=== PATIENT | female | born 1950 | race Caucasian/White ===

== ENCOUNTER 2017-03-04 10:34 | Inpatient (IN) ==
[2017-03-04] MEDS ORDERED: SALINE FLUSH 10ml SYRINGE IVF PRN (10:45)
--- NOTE | 2017-03-04 11:13 | Emergency Department Report ---
General Adult HPI - General Chief complaint: Medical Emergency Stated complaint: psych symptoms Time Seen by Provider: 03/04/17 10:41 Source: EMS, old records reviewed Mode of arrival: EMS Limitations: altered mental status - History of Present Illness HPI narrative: Jane is a 66-year-old female who [facility] was brought into the emergency Department today by EMS for reports of refusal to take blood pressure medications, change in behavior and agitation. Patient has a history of major neurocognitive disorder and resides in a care facility due to this. Apparently, patient has been refusing to take her medications today. Staff at the facility states blood pressure was recorded to be very elevated (160/115) and patient was refusing to take her meds. When paramedics arrived, blood pressure was improved around 130s over 80s. She was tachycardic at that time with heart rate of 112. Patient has no specific complaints, specifically she denies chest pain headache or shortness of air. Patient is a very poor historian due to her dementia. When asked where she was at, patient states "here". Patient does not know why she is here. She does appear anxious and slightly tremulous. Staff reports that patient has been not eating well however has been taking fluids. Patient presents to the emergency department for possible psychiatric evaluation. MD complaint: behavior issues, refusal to take meds Associated symptoms: confusion (baseline dementia, neurocognitive deficit) Treatments prior to arrival: none - Related Data Home Medications Medication Instructions Recorded Confirmed Cholecalciferol (Vitamin D3) 2,000 unit PO DAILY 01/29/17 03/04/17 [Vitamin D3] Mirtazapine Solu-Tab [Remeron 15 mg PO HS 01/29/17 03/04/17 Solu-Tab] Triamcinolone 0.1% Cream 15 G 1 applicatio TOP BID PRN 01/29/17 03/04/17 [Kenalog] Gabapentin [Neurontin] 100 mg PO TID 03/04/17 03/04/17 Previous Rx's Medication Instructions Recorded Acetaminophen [Acetaminophen Extra 500 mg PO Q6H PRN 30 Days #90 03/14/17 Strength] Aspirin [Adult Low Dose Aspirin EC] 81 mg PO DAILY 30 Days #30 03/14/17 Benzocaine 20% Oral Gel [Orajel] 1 applicatio MM PRN PRN 30 Days #30 03/14/17 Bimatoprost [Lumigan] 1 drop EACH EYE HS 30 Days #60 03/14/17 Divalproex Sprinkle [Depakote 250 mg PO 18 cap 03/14/17 Sprinkle] Donepezil HCl [Aricept] 5 mg PO HS 60 Days #30 03/14/17 EPINEPHrine [Epipen 2-Tyron] 0.3 mg IJ PRN PRN 30 Days #30 03/14/17 HydroCHLOROthiazide [Microzide] 12.5 mg PO BIDWM cap 03/14/17 LORazepam [Ativan] 0.5 mg PO Q6H PRN 30 Days #90 tab 03/14/17 Levothyroxine Sodium [Synthroid] 150 mcg PO ACB tab 03/14/17 Losartan [Cozaar] 50 mg PO DAILY 30 Days #30 03/14/17 Metoprolol Succinate (XL) [Toprol 25 mg PO BIDWM tab 03/14/17 Xl] Milk of Magnesia [Mom] 30 ml PO DAILY PRN udc 03/14/17 Potassium Chloride Oral Liq [KCl 30 meq PO BIDWM udc 03/14/17 Oral Liq] RisperiDONE [RisperDAL] 1 mg PO DAILY tab 03/14/17 RisperiDONE [RisperDAL] 2 mg PO 18 tab 03/14/17 Allergies Allergy/AdvReac Type Severity Reaction Status Date / Time No Known Allergies Allergy Verified 03/04/17 10:59 Review of Systems Limitations: ROS unobtainable due to patient's medical condition (patient with severe neurocognitive disorder) Constitutional: Reports: chills PFSH Patient Stated Medical History Alzheimer's Disease Yes Coronary Artery Disease Yes Hypertension Yes Osteoarthritis Yes - Social History Smoking status: Former smoker [place] Physical Exam - Limitations Limitations: altered mental status - General General appearance: alert, anxious - Normal Exams: Head:: Normocephalic without trauma Eyes:: Pupils are PERRLA w/ EOMI, No scleral icterus, irritation, or foreign bodies noted ENMT:: No facial trauma, nasal exudates, pharyngeal erythema, or exudates are noted Dental: No fractured, loose, or missing teeth noted Neck:: Full range of motion, without adenopathy, JVD, bruits or thyromegaly Chest/Respirations:: Clear all cain, with good airflow, and symmetry bilaterally Cardiovascular:: Regular rate and rhythm, without murmur or gallop, Pulses 2+ all extremities, capillary refill, <2 seconds all extremities Abdomen:: Bowel sounds positive, soft, non-tender, non-distended, no hepatosplenomegaly, masses or bruits noted Genitourinary:: Vulva without rashes, or lesions, no exudate or bleeding, noted externally Lymphatic:: No lymphadenopathy, or lymphedema noted Musculoskeletal:: No tenderness, or deformity noted, good range of motion, all extremities Integumentary:: No rashes, hives, or bruising noted, hair and nails, without abnormality - Neurological Exam Neurological exam: Present: alert - Expanded Neurological Exam Patient oriented to: Present: person Course Vital Signs Temperature 97.1 F 03/04/17 10:39 Pulse Rate 76 03/04/17 10:39 Respiratory Rate 16 03/04/17 10:39 Blood Pressure 150/67 H 03/04/17 10:39 Pulse Oximetry 97 03/04/17 10:39 Temperature 97.7 F 03/14/17 08:00 Pulse Rate 87 03/14/17 08:00 Respiratory Rate 18 03/14/17 08:00 Blood Pressure 128/72 03/14/17 08:00 Pulse Oximetry 99 03/14/17 08:00 Medical Decision Making - Lab Data Result diagrams: 03/09/17 08:02 03/14/17 06:36 Lab Results 03/04/17 03/04/17 03/04/17 Range/Units 11:07 11:07 14:10 WBC 5.3 (4.5-11.0) T/MM3 RBC 4.78 (4.00-5.20) M/MM3 Hgb 13.5 (12-16) GM/DL Hct 41.6 (36-46) % MCV 87.0 (80-100) UM3 MCH 28.2 (26-34) UUG MCHC 32.5 (31-37) GM/DL RDW Std Deviation 43.5 (36.9-50.2) FL Plt Count 204 (130-400) T/MM3 MPV 13.7 H (9.4-12.4) UM3 Immature Gran % (Auto) 0.0 (0.0-0.5) % Neut % (Auto) 49.9 (33-66) % Lymph % (Auto) 39.0 (23-45) % [place] % (Auto) 8.2 (0-9.0) % Eos % (Auto) 1.9 (0-4) % Baso % (Auto) 1.0 (0-2) % Neut # (Auto) 2.6 (1.8-7.7) T/MM3 Lymph # (Auto) 2.1 (1-4.8) T/MM3 [place] # (Auto) 0.4 (0-0.8) T/MM3 Eos # (Auto) 0.1 (0-0.5) T/MM3 Baso # (Auto) 0.1 (0-0.2) T/MM3 Abs Immat Gran (auto) 0.00 (0.00-0.03) T/MM3 Turbidity < 20 (0-20) Sodium 142 (134-144) MEQ/L Potassium 3.2 L (3.6-5) MEQ/L Chloride 98 (98-107) MEQ/L Carbon Dioxide 30 (22-30) MEQ/L Anion Gap 14 (5-15) MEQ/L BUN 22.0 H (7-17) MG/DL Creatinine 0.9 (0.7-1.2) MG/DL GFR Calculation 62 BUN/Creatinine Ratio 24 (6-26) RATIO Glucose 105 (65-110) MG/DL Calculated Osmolality 276 (261-280) MOSM/KG Calcium 9.7 (8.4-10.2) MG/DL Total Bilirubin 0.90 (0.20-1.30) MG/DL Icterus Index < 2 (0-7) AST 53 H (14-36) U/L ALT 78 H (9-52) U/L Alkaline Phosphatase 67 (38-126) U/L Total Protein 8.0 (6.3-8.2) G/DL Albumin 4.5 (3.5-5.0) G/DL Globulin 3.5 (2.4-3.6) G/DL Albumin/Globulin Ratio 1.3 (1.1-2.2) RATIO TSH 0.21 L (0.47-4.68) MIU/L Specimen Hemolysis < 15 (0-25) Ur Collection Type Urine, clean catch Urine Color Margaret (YELLOW) Urine Clarity Clear Urine pH 6.0 (5.0-8.0) Ur Specific [place] >=1.030 H (1.015-1.025) Urine Protein 1+ A (NEGATIVE) Urine Glucose (UA) Negative (NEGATIVE) Urine Ketones 3+ A (NEGATIVE) Urine Occult Blood Negative (NEGATIVE) Urine Nitrate Negative (NEGATIVE) Urine Bilirubin 2+ A (NEGATIVE) Urine Urobilinogen 2.0 (NORMAL) EU/DL Ur Leukocyte Esterase Negative (NEGATIVE) Urine RBC 1-3 (0-3) /HPF Urine WBC 1-3 (0-5) /HPF Ur Squamous Epith Cells 5-10 Urine Bacteria 2+ H (NEGATIVE) Urine Mucus Present Ur Culture Indicated? Cult not indicated Disposition Clinical Impression: Medical Emergency Disposition: 64 To [facility] Condition: Stable
--- OUTSIDE RECORDS SUMMARY | 2017-03-04 11:20 | External Medical Summary | Clinical Summary ---
:1950 Author Organization [facility] Address [address] [address] Phone Allergies Active Allergy Reactions Severity Noted Date Comments Amoxicillin 11/13/2010 Amoxicillin-Pot Clavulanate 11/13/2010 Cefprozil 11/13/2010 Erythromycin 11/13/2010 Sulfa Antibiotics 11/13/2010 Current Medications Prescription Sig. Disp. Refills Start Date End Date Status levothyroxine (SYNTHROID, Take 75 mcg by Active LEVOTHROID) 75 MCG tablet mouth daily. lisinopril Take 5 mg by mouth Active (PRINIVIL,ZESTRIL) 5 MG daily. tablet Active Problems Not on file Social History Tobacco Use Types Packs/Day Years Used Date Never Smoker Alcohol Use Drinks/Week oz/Week Comments Yes socially Sex Assigned at Date Recorded Not on file Last Filed Vital Signs Vital Sign Reading Time Taken Blood Pressure 173/68 11/13/2010 1:19 PM CDT Pulse 63 11/13/2010 1:19 PM CDT Temperature 36.5 C (97.7 F) 11/13/2010 1:19 PM CDT Respiratory Rate 20 11/13/2010 1:19 PM CDT Oxygen Saturation 100% 11/13/2010 1:19 PM CDT Inhaled Oxygen Concentration - - Weight 79.4 kg (175 lb) 11/13/2010 1:19 PM CDT Height - - Body Mass Index - - Plan of Treatment Health Maintenance Due Date Last Done Comments Hepatitis C Screening 1950 DTaP,Tdap,and Td Vaccines (1 - Tdap) 1968 Breast Cancer Screening-Mammogram 1999 Colon Cancer Screening 1999 Zoster Vaccine (#1) 2009 Pneumo-Adult (1 of 2 - PCV13) 2014 Influenza Vaccine (#1) 2016 Results Not on filefrom Last 3 Months
[2017-03-04] MEDS ORDERED: LORazepam 0.5 MG TABLET PO PRN (16:29)
[2017-03-04] MEDS ORDERED: HALOPERIDOL 5 MG/ML INJECTION IM PRN (16:29)
[2017-03-04] MEDS ORDERED: HALOPERIDOL 0.5 MG TABLET PO PRN (16:29)
[2017-03-04] MEDS ORDERED: TRIAMCINOLONE 0.1% CREAM 15 G TUBE TOP PRN (20:44)
[2017-03-04] MEDS ORDERED: ACETAMINOPHEN 500 MG TABLET PO PRN (20:44)
[2017-03-04] MEDS ORDERED: BENZOCAINE 20% ORAL GEL (Max Strength) MM PRN (20:44)
[2017-03-04] MEDS ORDERED: [UNRECOGNIZED DRUG - OTHER] PO SCH (21:00)
[2017-03-04] MEDS ORDERED: HYDROCHLOROTHIAZ PO SCH (21:00)
[2017-03-04] MEDS ORDERED: METOPROLOL SU PO SCH (21:00)
[2017-03-04] MEDS: DONEPEZIL 10 MG TABLET PO SCH ×2 (22:16→23:16)
[2017-03-04] MEDS: GABAPENTIN 100 MG CAPSULE PO SCH ×2 (22:16→23:16)
[2017-03-04] MEDS: MIRTAZAPINE 15 MG SOLU-TAB PO SCH ×2 (22:17→23:16)
[2017-03-04] MEDS: MEMANTINE 10 MG TABLET PO SCH ×2 (22:18→23:16)
[2017-03-04] MEDS: EYE EACH EYE SCH ×2 (22:18→23:16)
[2017-03-04] MEDS: BIMATOPROST 0.03% EACH EYE SCH ×2 (22:18→23:16)
[2017-03-05] MEDS ORDERED: LEVOTHYROXINE 175 MCG TABLET PO SCH (06:30)
[2017-03-05] MEDS: GABAPENTIN 100 MG CAPSULE PO SCH ×2 (10:12→11:15)
[2017-03-05] MEDS: MEMANTINE 10 MG TABLET PO SCH ×3 (11:16→21:27)
[2017-03-05] MEDS: LOSARTAN 50 MG TABLET PO SCH (11:16)
[2017-03-05] MEDS: ASPIRIN *EC* 81 MG TABLET PO SCH (11:17)
--- NOTE | 2017-03-05 12:26 | CT Scan Report ---
Indication: changes in behavior PROCEDURE: CT head/brain wo con: Encounter: Initial Comparison: None Technique: Axial CT images through the head were performed without contrast. Iterative Reconstruction dose reducing technique was utilized. FINDINGS: Moderate generalized atrophy, advanced for age. The ventricles are of normal size, shape, and contour for the patient's age. There are scattered areas of low attenuation in the white matter which most likely represent changes from chronic microvascular ischemia. The brainstem, cerebellum, and cerebral hemispheres otherwise have a normal morphology and CT attenuation. There is no evidence of midline displacement. No hemorrhage, signs of acute territorial stroke, mass effect, mass lesions, or edema is evident. The visualized portions of the skull base, midface, and calvarium demonstrate no abnormality. Opacified right sphenoid sinus. The tympanic and mastoid cavities appear normal. IMPRESSION: No acute intracranial abnormality or hemorrhage. There is a preliminary report by [facility]. .
--- NOTE | 2017-03-05 15:17 | 24 Hour Neuropsychiatic Eval ---
Date of Admission: 03/04/17 16:29 Chief complaint: Physical aggression History of Present Illness: Patient is a 66-year-old female who was admitted to [facility] on 03/04/17 from [facility] [[email or web address]] for refusing medications and physical aggression at the [facility] facility (towards staff and other residents), increasing over the past 1-2 weeks. Patient has an established history of dementia. On interview, patient says very little to me and does not give meaningful answers other than saying she is "okay." Nursing staff report she has continued to refuse medications since admission, slept well overnight but then has been pacing frequently this morning. She has also had some mild physical aggression such as acting that she was going to choke one of our nurses. Patient's appetite is quite poor. [facility] Medical History (Last Reviewed 12/13/16 @ 08:19 by Isaias Carrizales APRN) Contusion of face (Inactive Medical) Fall (Inactive Medical) Nasal fracture (Inactive Medical) Medical History Updates: Not able to obtain reliable history from patient due to dementia. Surgical History: Not able to obtain reliable history from patient due to dementia. Family History: Not able to obtain reliable history from patient due to dementia. - Social History Smoking status: Former smoker Current residence: [facility]mediate ([facility] [[email or web address] Social history: Not able to obtain reliable history from patient due to dementia. Strengths: Has family support (sisters), placement at [facility] [[email or web address]] Review of Systems ROS unobtainable: due to mental status - Constitutional Constitutional: Present: other (decreased appetite) - Psychiatric Psychiatric: Present: as per HPI, behavioral changes Mental Status Exam Vitals: Last Vital Signs Temp 97.6 F 03/05/17 13:41 Pulse 87 03/05/17 13:41 Resp 12 03/05/17 13:41 BP 125/77 03/05/17 13:41 Pulse Ox 99 03/05/17 13:41 Height: 1.65 m Weight: 74 kg - Mental Status Exam Muscle Strength/Tone: Weak Dressing: Casual Grooming: Fair Attitude: Uncooperative, Combative Motor Activity: Retardation, Pacing (at times) Eye Contact: Poor Speech: Slowed Volume: Soft Rhythm: Paucity of Language Orientation: Disoriented to time, Disoriented to place, Disoriented to situation , Oriented to person Mood: Irritable Affect: Blunted Rate of Thoughts: Delayed Thought Organization: [place], Confused Associations: Illogical Abstract Reasoning: Impaired, concrete Thought Content: Other (Poverty of thought) Perception/Psychotic: Perception Normal Language: Naming Impaired Fund of Knowledge: Poor fund of knowledge Memory: Poor-immediate, Poor-recent, Poor-remote Suicidal Ideation: None Homicidal Ideation: Other (Does not answer; makes action as if to choke nurse) Insight: Impaired Judgement: Impaired Impulse Control: Poor - Laboratory Result Diagrams: 03/04/17 11:07 03/04/17 11:07 Laboratory Results - last 24 hr 03/05/17 07:29 Hemoglobin A1c 5.5 Triglycerides 143 H Cholesterol 214 H LDL Cholesterol, Calc 149.4 VLDL Cholesterol 28.6 H HDL Cholesterol 36 L Cholesterol/HDL Ratio 5.9 H Assessment and Plan (1) Major neurocognitive disorder Problem details: etiology unclear at this point, moderate to severe, with behavioral disturbance Current visit: Yes Status: Acute (2) Hypertension Current visit: Yes Status: Acute Admit to [facility] for evaluation and stabilizaion; maintain safety and elopement precautions. Will review and/or order following labs: CBC, CMP, TSH, UA, Vitamin B12 and folate levels, head CT. Obtain further collateral history from family/DPOA and LTC facility. Consult hospitalist for optimization of medical comorbidities. Monitor mood, behavior and response to treatment. Discussed medication options with sister/DPOA Betty who gave informed consent to start Risperdal 0.5mg PO BID to target agitation and aggression.
--- NOTE | 2017-03-05 20:52 | History & Physical Report ---
History of Present Illness Date: 03/05/17 Chief complaint: Behavioral changes HPI: The following is from pt's ER admission: "Jane is a 66-year-old female who resides at [facility] [[email or web address] was brought into the emergency Department today by EMS for reports of refusal to take blood pressure medications, change in behavior and agitation. Patient has a history of major neurocognitive disorder and resides in a care facility due to this. Apparently, patient has been refusing to take her medications today. Staff at the facility states blood pressure was recorded to be very elevated (160/115) and patient was refusing to take her meds. When paramedics arrived, blood pressure was improved around 130s over 80s. She was tachycardic at that time with heart rate of 112. Patient has no specific complaints, specifically she denies chest pain headache or shortness of air. Patient is a very poor historian due to her dementia. When asked where she was at, patient states "here". Patient does not know why she is here. She does appear anxious and slightly tremulous. Staff reports that patient has been not eating well however has been taking fluids." Patient was seen this evening in her room [facility]. She was lying in bed and was not conversational. She was able to tell me her name. Beyond that , she did not answer any questions or offer any information. All information is gathered from her ER note and chart. Patient was diagnosed with dementia at age 61 (2011) she has a history of marijuana use many years ago. Plan is for patient to be discharged back to [facility] [[email or web address]] once her mood is stabilized and behaviors are improved so she can safely return to her facility. Review of Systems ROS unobtainable: due to mental status [facility] Patient Stated Medical History Alzheimer's Disease Yes Coronary Artery Disease Yes Hypertension Yes Osteoarthritis Yes Clinic Medical History (Last Reviewed 12/13/16 @ 08:19 by Isaias Carrizales APRN) Major neurocognitive disorder (Acute Medical) etiology unclear at this point, moderate to severe, with behavioral disturbance Hypertension (Acute Medical) Contusion of face (Inactive Medical) Fall (Inactive Medical) Nasal fracture (Inactive Medical) Medical History Updates: Not able to obtain reliable history from patient due to dementia. Surgical History: Not able to obtain reliable history from patient due to dementia. Family History: Not able to obtain reliable history from patient due to dementia. - Social History Smoking status: Unknown if ever smoked Substance use type: marijuana (in the past) Current residence: [facility] ([facility] [[email or web address] Social history: PCP-Carlene Salvador Medications Home Medications Medication Instructions Recorded Confirmed Type Acetaminophen [Acetaminophen Extra 500 mg PO Q6H PRN 01/29/17 03/04/17 History Strength] Aspirin [Adult Low Dose Aspirin EC] 81 mg PO DAILY 01/29/17 03/04/17 History Benzocaine 20% Oral Gel [Orajel] 1 applicatio MM PRN PRN 01/29/17 03/04/17 History Bimatoprost [Lumigan] 1 drop EACH EYE HS 01/29/17 03/04/17 History Cholecalciferol (Vitamin D3) 2,000 unit PO DAILY 01/29/17 03/04/17 History [Vitamin D3] Donepezil HCl [Aricept] 10 mg PO HS 01/29/17 03/04/17 History EPINEPHrine [Epipen 2-Tyron] 0.3 mg IJ PRN PRN 01/29/17 03/04/17 History Levothyroxine Tab [Synthroid] 175 mcg PO ACB 01/29/17 03/04/17 History Losartan [Cozaar] 50 mg PO DAILY 01/29/17 03/04/17 History Memantine HCl [Namenda] 10 mg PO BID 01/29/17 03/04/17 History Metoprolol Pepe/Hydrochlorothiaz 1 tab PO BID 01/29/17 03/04/17 History [Metoprolol ER-Hctz 25-12.5 mg] Mirtazapine Solu-Tab [Remeron 15 mg PO HS 01/29/17 03/04/17 History Solu-Tab] Potassium Chloride 10 meq PO DAILY 01/29/17 03/04/17 History Triamcinolone 0.1% Cream 15 G 1 applicatio TOP BID PRN 01/29/17 03/04/17 History [Kenalog] Gabapentin [Neurontin] 100 mg PO TID 03/04/17 03/04/17 History Allergies Allergy/AdvReac Type Severity Reaction Status Date / Time No Known Allergies Allergy Verified 03/04/17 10:59 Exam Vital Signs: Temperature 97.6 F 03/05/17 13:41 Pulse Rate 78 03/05/17 19:55 Respiratory Rate 16 03/05/17 19:55 Blood Pressure 125/77 03/05/17 13:41 Pulse Oximetry 99 03/05/17 19:55 Height/Weight/BMI: Height 1.65 m Weight 74 kg Body Mass Index 27.1 - Constitutional Present: no acute distress, well nourished, well developed - Routine HEENT Exam Head: Present: normocephalic, atraumatic Eye: Present: EOMI. Absent: conjunctival icterus, exophthalmos ENT: Present: external ear normal - Routine Neck Exam Present: supple. Absent: lymphadenopathy, thyromegaly - Routine Respiratory Exam Present: CTA bilaterally. Absent: wheezes - Routine Cardiovascular Exam Present: RRR. Absent: murmur - Routine Abdominal Exam Present: soft, normoactive bowel sounds, non distended. Absent: tenderness - Routine Extremities Exam Present: no edema, normal capillary refill - Routine Skin Exam Present: dry, warm - Routine Neurological Exam Present: alert (alert but drowsy. Speech is clear with the few words she speaks. ), moving all extremities - Routine Psychiatric Exam Present: cooperative, unable to assess Results - Labs CBC & Chem 7: 03/04/17 11:07 03/04/17 11:07 Assessment and Plan (1) Major neurocognitive disorder Problem details: etiology unclear at this point, moderate to severe, with behavioral disturbance Current visit: Yes Status: Acute Assessment and Plan: Assessment Major neurocognitive disorder with behavior disturbance Alzheimer's Disease Coronary Artery Disease Hypertension Osteoarthritis Hypothyroidism-(on supplementation) low TSH -POA Hypokalemia-POA Hyperlipidemia Elevated LFTs-POA Plan Agree with admission to [facility] for evaluation and treatment by psychiatrist and to provide a safe environment. Chronic medical problems appear stable. She does have hypokalemia on admission. We'll will replace potassium and repeat BMP. She is found to have a low TSH on admission. FreeT4 is pending. Decrease her levothyroxine dose from 175 g to 150 g she'll need follow-up TSH in 4-6 weeks on an outpatient basis. Her liver enzymes are mildly elevated. Will monitor closely. We will follow patient medically throughout her stay. Thank you for the consult. Patient's care to return to Dr. Salvador upon discharge. Resuscitation Status: Do Not Resuscitate - Physician Narriative Physician: Sarita Laird MD Narriative: 03/05/17 23:15 I have independently evaluated and examined this patient. I reviewed the chart, the patient's history, and the TRACK HOE OPERATOR/PA's documented findings as above. We discussed and formulated the assessment and plan as above with additions as below: Mrs. Mcbride was seen resting in her room. She was largely nonverbal staring blankly ahead. At one point she answered "Nassar"and appeared to be mimicking my question; on one other occasion she responded "no"clearly when asked if she had abdominal pain. There was no other speech throughout my assessment. Transfer records from [facility] [[email or web address]] report additional history of major depressive disorder, hyperlipidemia, glaucoma, and hypothyroidism. Vascular dementia is referenced in outpatient records. Gen. recent urinary tract infection treated with Bactrim and was started on gabapentin on February 22. The patient is curled in a semi- position on her right side. She stares straight ahead and does not follow/track to evaluate extra eye movements but gaze is conjugate and pupils are round and react to light. Facial structures are symmetric and tongue is midline. Neck is supple and without adenopathy. Respirations are nonlabored, airflow good and breath sounds clear Regular cardiac rhythm, S1-S2 Abdomen benign Picker Feeder are strong bilaterally, sensation intact bilateral feet and patient kicks when feet are stimulated-appears to have fairly symmetric power in the lower extremities although power cannot be formally evaluated. Head CT reviewed by myself demonstrating generalized atrophy advanced for age and chronic microvascular ischemia but no hemorrhage or acute pathology. ECG also reviewed by myself revealing sinus rhythm with normal waveforms. Laboratory data reviewed-minor elevation in transaminases, total cholesterol 214 with LDL 149, HDL 36, TSH 0.21; B 12, free T4 pending. Urine with 1-3 WBCs, +3 ketones-urine concentrated. Supportive environment, additional history from [facility] [[email or web address]outpatient provider will be beneficial in managing patient if available. Likely some component of dehydration based on presence of ketones and concentrated urine, oral intake will be encouraged initially. 03/05/17 23:23 Past hospital records reviewed Hospital Course Summary Disclaimer: The visit summary below is not to be considered part of the above Progress Note. Hospital Course: Assessment Major neurocognitive disorder with behavior disturbance Alzheimer's Disease Coronary Artery Disease Hypertension Osteoarthritis Hypothyroidism-(on supplementation) low TSH -POA Hypokalemia-POA Hyperlipidemia Elevated LFTs-POA 12/11/17 hospitalist consult Agree with admission to [facility] for evaluation and treatment by psychiatrist and to provide a safe environment. Chronic medical problems appear stable. She does have hypokalemia on admission. We'll replace potassium and repeat BMP. She is found to have a low TSH on admission. FreeT4 is pending. Decrease her levothyroxine dose from 175 g to 150 g she'll need follow-up TSH in 4-6 weeks on an outpatient basis. Her liver enzymes are mildly elevated. Will monitor closely. We will follow patient medically throughout her stay. Thank you for the consult. Patient's care to return to Dr. Salvador upon discharge.
[2017-03-05] MEDS: BIMATOPROST 0.03% EACH EYE SCH (21:00)
[2017-03-05] MEDS: EYE EACH EYE SCH (21:00)
[2017-03-05] MEDS: DONEPEZIL 10 MG TABLET PO SCH ×2 (21:01→21:27)
[2017-03-05] MEDS: RisperiDONE 0.5 MG TABLET PO SCH (21:02)
[2017-03-05] MEDS: MIRTAZAPINE 15 MG SOLU-TAB PO SCH (21:02)
[2017-03-06] MEDS: LEVOTHYROXINE 150 MCG TABLET PO SCH ×2 (06:45→12:24)
[2017-03-06] MEDS: ASPIRIN *EC* 81 MG TABLET PO SCH (12:34)
[2017-03-06] MEDS: LOSARTAN 50 MG TABLET PO SCH (12:34)
[2017-03-06] MEDS: RisperiDONE 0.5 MG TABLET PO SCH (12:34)
[2017-03-06] MEDS: MEMANTINE 10 MG TABLET PO SCH ×3 (12:34→21:48)
--- NOTE | 2017-03-06 13:34 | Neuropsych Progress Note ---
[facility] Subjective Date: 03/06/17 - Sujective/Severity of Illness Medications: Acetaminophen (Tylenol) 500 mg PO Q6H PRN PRN Reason: Pain Last Admin: 03/05/17 11:57 Dose: 500 mg Aspirin (Ecotrin) 81 mg PO DAILY [facility] Last Admin: 03/06/17 12:34 Dose: Not Given Benzocaine (Orajel) 1 applic MM PRN PRN PRN Reason: PRN orders Bimatoprost (Lumigan) 1 drop EACH EYE [facility] Last Admin: 03/05/17 21:00 Dose: 1 drop Donepezil HCl (Aricept) 10 mg PO HS [facility] Last Admin: 03/05/17 21:27 Dose: Not Given Epinephrine HCl (Epipen) 0.3 mg IM PRN PRN PRN Reason: Allergic reaction Haloperidol (Haldol) 0.5 mg PO Q6H PRN PRN Reason: Extreme agitation Last Admin: 03/05/17 11:57 Dose: 0.5 mg Haloperidol Lactate (Haldol) 0.5 mg IM Q6H PRN PRN Reason: Extreme agitation Hydrochlorothiazide (Microzide) 12.5 mg PO BIDWM [facility] Last Admin: 03/06/17 12:25 Dose: Not Given Levothyroxine Sodium (Synthroid) 150 mcg PO ACB [facility] Last Admin: 03/06/17 12:24 Dose: Not Given Lorazepam (Ativan) 0.5 mg PO Q6H PRN PRN Reason: Extreme agitation Last Admin: 03/05/17 16:06 Dose: 0.5 mg Lorazepam (Ativan Inj) 0.5 mg IM Q6H PRN PRN Reason: Extreme agitation Last Admin: 03/05/17 07:38 Dose: 0.5 mg Losartan Potassium (Cozaar) 50 mg PO DAILY [facility] Last Admin: 03/06/17 12:34 Dose: Not Given Memantine (Namenda) 10 mg PO BID [facility] Last Admin: 03/06/17 12:34 Dose: Not Given Metoprolol Succinate (Toprol Xl) 25 mg PO BIDWM [facility] Last Admin: 03/06/17 12:25 Dose: Not Given Mirtazapine (Remeron Solu-Tab) 15 mg PO HS [facility] Last Admin: 03/05/17 21:02 Dose: 15 mg Potassium Chloride (Micro-K) 10 meq PO WB [facility] Last Admin: 03/06/17 12:25 Dose: Not Given Risperidone (Risperdal) 1 mg PO BID [facility] Sodium Chloride (Iv Flush) 10 - 80 ml IVF PRN PRN PRN Reason: Flushing Triamcinolone Acetonide (Kenalog) 1 applic TOP BID PRN PRN Reason: PRN orders Subjective: Patient seen and chart reviewed. Case discussed with treatment team. Patient is sleeping soundly during rounds. She has had intermittent agitation, aggression requiring multiple PRNs. She did take psychotropic meds last night but has been refusing other medications. MSE below based on my last interaction with patient. Patient slept well overnight. VSS. Appetite is fair. Risperdal 0.5mg PO BID started yesterday evening. Start Time: 09:00 Stop Time: 09:20 Mental Status Exam Vitals: Last Vital Signs Temp 96.8 F 03/05/17 21:30 Pulse 66 03/05/17 21:30 Resp 16 03/05/17 21:30 BP 116/63 03/05/17 21:30 Pulse Ox 99 03/05/17 21:30 Height: 1.65 m Weight: 74 kg - Mental Status Exam Muscle Strength/Tone: Weak Dressing: Casual Grooming: Fair Attitude: Uncooperative, Combative Motor Activity: Retardation, Pacing (at times) Eye Contact: Poor Speech: Slowed Volume: Soft Rhythm: Paucity of Language Orientation: Disoriented to time, Disoriented to place, Disoriented to situation , Oriented to person Mood: Irritable (labile affect on unit) Rate of Thoughts: Delayed Thought Organization: [place], Confused Associations: Illogical Abstract Reasoning: Impaired, concrete Thought Content: Other (Poverty of thought) Perception/Psychotic: Perception Normal Language: Naming Impaired Fund of Knowledge: Poor fund of knowledge Memory: Poor-immediate, Poor-recent, Poor-remote Suicidal Ideation: None Homicidal Ideation: Other (Does not answer; makes action as if to choke nurse) Insight: Impaired Judgement: Impaired Impulse Control: Poor - Laboratory Result Diagrams: 03/04/17 11:07 03/06/17 06:56 Laboratory Results - last 24 hr 03/06/17 06:56 Turbidity < 20 Sodium 144 Potassium 4.3 D Chloride 101 Carbon Dioxide 27 Anion Gap 16 H BUN 18.0 H Creatinine 1.0 GFR Calculation 55 BUN/Creatinine Ratio 18 Glucose 106 Calculated Osmolality 279 Calcium 9.7 Total Bilirubin 0.90 Icterus Index < 2 AST 37 H ALT 49 Alkaline Phosphatase 57 Total Protein 8.1 Albumin 4.4 Globulin 3.7 H Albumin/Globulin Ratio 1.2 Specimen Hemolysis 125 H Assessment and Plan (1) Major neurocognitive disorder Problem details: etiology unclear at this point, moderate to severe, with behavioral disturbance Current visit: Yes Status: Acute (2) Hypertension Current visit: Yes Status: Acute (3) Coronary artery disease Current visit: Yes Status: Acute (4) Hyperlipidemia Current visit: Yes Status: Acute (5) Hypothyroidism Current visit: Yes Status: Acute (6) Elevated LFTs Current visit: Yes Status: Acute 03/05/17 Psych: Started Risperdal 0.5mg PO BID to target agitation and behavioral dyscontrol. Patient is also taking mirtazapine 15mg PO q HS. 03/06/17 Psych: Patient continues to be quite agitated, requiring multiple PRNs. Will increase Risperdal to 1mg PO BID to start this evening; monitor response. Hospital Course Summary Disclaimer: The visit summary below is not to be considered part of the above Progress Note. Hospital Course: Assessment Major neurocognitive disorder with behavior disturbance Alzheimer's Disease Coronary Artery Disease Hypertension Osteoarthritis Hypothyroidism-(on supplementation) low TSH -POA Hypokalemia-POA Hyperlipidemia Elevated LFTs-POA 03/05/17 hospitalist consult Agree with admission to [facility] for evaluation and treatment by psychiatrist and to provide a safe environment. Chronic medical problems appear stable. She does have hypokalemia on admission. We'll replace potassium and repeat BMP. She is found to have a low TSH on admission. FreeT4 is pending. Decrease her levothyroxine dose from 175 g to 150 g she'll need follow-up TSH in 4-6 weeks on an outpatient basis. Her liver enzymes are mildly elevated. Will monitor closely. We will follow patient medically throughout her stay. Thank you for the consult. Patient's care to return to Dr. Salvador upon discharge.
[2017-03-06] MEDS: MIRTAZAPINE 15 MG SOLU-TAB PO SCH ×2 (17:36→21:39)
[2017-03-06] MEDS: RisperiDONE 1 MG TABLET PO SCH ×2 (17:37→21:39)
[2017-03-06] MEDS: DONEPEZIL 10 MG TABLET PO SCH ×2 (21:38→21:47)
[2017-03-06] MEDS: EYE EACH EYE SCH ×2 (21:38→21:48)
[2017-03-06] MEDS: BIMATOPROST 0.03% EACH EYE SCH ×2 (21:38→21:48)
[2017-03-07] MEDS: ASPIRIN *EC* 81 MG TABLET PO SCH (13:36)
[2017-03-07] MEDS: MEMANTINE 10 MG TABLET PO SCH ×2 (13:36→22:32)
[2017-03-07] MEDS: LEVOTHYROXINE 150 MCG TABLET PO SCH (13:36)
[2017-03-07] MEDS: RisperiDONE 1 MG TABLET PO SCH (13:36)
[2017-03-07] MEDS: LOSARTAN 50 MG TABLET PO SCH (13:37)
--- NOTE | 2017-03-07 16:18 | Neuropsych Progress Note ---
[facility] Subjective Date: 03/08/17 - Sujective/Severity of Illness Medications: Acetaminophen (Tylenol) 500 mg PO Q6H PRN PRN Reason: Pain Last Admin: 03/05/17 11:57 Dose: 500 mg Aspirin (Ecotrin) 81 mg PO DAILY [facility] Last Admin: 03/07/17 13:36 Dose: 81 mg Benzocaine (Orajel) 1 applic MM PRN PRN PRN Reason: PRN orders Bimatoprost (Lumigan) 1 drop EACH EYE [facility] Last Admin: 03/06/17 21:48 Dose: Not Given Donepezil HCl (Aricept) 10 mg PO HS [facility] Last Admin: 03/06/17 21:47 Dose: Not Given Epinephrine HCl (Epipen) 0.3 mg IM PRN PRN PRN Reason: Allergic reaction Haloperidol (Haldol) 0.5 mg PO Q6H PRN PRN Reason: Extreme agitation Last Admin: 03/05/17 11:57 Dose: 0.5 mg Haloperidol Lactate (Haldol) 0.5 mg IM Q6H PRN PRN Reason: Extreme agitation Hydrochlorothiazide (Microzide) 12.5 mg PO BIDWM [facility] Last Admin: 03/07/17 13:36 Dose: 12.5 mg Levothyroxine Sodium (Synthroid) 150 mcg PO ACB [facility] Last Admin: 03/07/17 13:36 Dose: 150 mcg Lorazepam (Ativan) 0.5 mg PO Q6H PRN PRN Reason: Extreme agitation Last Admin: 03/05/17 16:06 Dose: 0.5 mg Lorazepam (Ativan Inj) 0.5 mg IM Q6H PRN PRN Reason: Extreme agitation Last Admin: 03/05/17 07:38 Dose: 0.5 mg Losartan Potassium (Cozaar) 50 mg PO DAILY [facility] [place] Last Admin: 03/07/17 13:37 Dose: 50 mg Memantine (Namenda) 10 mg PO BID [facility] Last Admin: 03/07/17 13:36 Dose: 10 mg Metoprolol Succinate (Toprol Xl) 25 mg PO BIDWM [facility] Last Admin: 03/07/17 13:37 Dose: 25 mg Mirtazapine (Remeron Solu-Tab) 15 mg PO [facility] Last Admin: 03/06/17 21:39 Dose: Not Given Potassium Chloride (Micro-K) 10 meq PO WB [facility] Last Admin: 03/07/17 13:36 Dose: 10 meq Risperidone (Risperdal) 1 mg PO BID [facility] Last Admin: 03/07/17 13:36 Dose: 1 mg Sodium Chloride (Iv Flush) 10 - 80 ml IVF PRN PRN PRN Reason: Flushing Triamcinolone Acetonide (Kenalog) 1 applic TOP BID PRN PRN Reason: PRN orders Subjective: Patient seen and chart reviewed. Case discussed with treatment team. Patient is lying in bed awake during rounds but refuses to respond to my questions. Nursing staff report patient refused HS meds last night, has been mildly aggressive during daytime (pinched SHIP LINER), but very physically aggressive with cares even after premedicating with Ativan. Patient slept 11 hours overnight. VSS. Appetite is limited. Start Time: 09:20 Stop Time: 09:40 Mental Status Exam Vitals: Last Vital Signs Temp 98.2 F 03/07/17 15:55 Pulse 76 03/07/17 15:55 Resp 18 03/07/17 15:55 BP 128/63 03/07/17 15:55 Pulse Ox 99 03/07/17 15:55 Height: 1.65 m Weight: 74 kg - Mental Status Exam Muscle Strength/Tone: Weak Dressing: Casual Grooming: Fair Attitude: Uncooperative, Combative Motor Activity: Retardation, Pacing (at times) Eye Contact: Poor Speech: Slowed Volume: Soft Rhythm: Paucity of Language Orientation: Disoriented to time, Disoriented to place, Disoriented to situation , Oriented to person Mood: Irritable (labile affect on unit) Affect: Blunted Rate of Thoughts: Delayed Thought Organization: [place], Confused Associations: Illogical Abstract Reasoning: Impaired, concrete Thought Content: Other (Poverty of thought) Perception/Psychotic: Perception Normal Language: Naming Impaired Fund of Knowledge: Poor fund of knowledge Memory: Poor-immediate, Poor-recent, Poor-remote Suicidal Ideation: None Homicidal Ideation: Other (Does not answer; makes action as if to choke nurse) Insight: Impaired Judgement: Impaired Impulse Control: Poor - Laboratory Result Diagrams: 03/04/17 11:07 03/06/17 06:56 Laboratory Results - last 24 hr 03/05/17 03/05/17 07:28 07:29 Vitamin B12 639 Folate 5.8 Free T4 1.28 Assessment and Plan (1) Major neurocognitive disorder Problem details: etiology unclear at this point, moderate to severe, with behavioral disturbance Current visit: Yes Status: Acute (2) Hypertension Current visit: Yes Status: Acute (3) Coronary artery disease Current visit: Yes Status: Acute (4) Hyperlipidemia Current visit: Yes Status: Acute (5) Hypothyroidism Current visit: Yes Status: Acute (6) Elevated LFTs Current visit: Yes Status: Acute Hospital Course Summary Disclaimer: The visit summary below is not to be considered part of the above Progress Note. Hospital Course: Assessment Major neurocognitive disorder with behavior disturbance Alzheimer's Disease Coronary Artery Disease Hypertension Osteoarthritis Hypothyroidism-(on supplementation) low TSH -POA Hypokalemia-POA Hyperlipidemia Elevated LFTs-POA 03/05/17 hospitalist consult Agree with admission to [facility] for evaluation and treatment by psychiatrist and to provide a safe environment. Chronic medical problems appear stable. She does have hypokalemia on admission. We'll replace potassium and repeat BMP. She is found to have a low TSH on admission. FreeT4 is pending. Decrease her levothyroxine dose from 175 g to 150 g she'll need follow-up TSH in 4-6 weeks on an outpatient basis. Her liver enzymes are mildly elevated. Will monitor closely. We will follow patient medically throughout her stay. Thank you for the consult. Patient's care to return to Dr. Salvador upon discharge. 03/07/17 Psych: Increased Risperdal to 1mg PO q AM, 2mg PO daily at dinnertime as patient continues to be quite combative/aggressive. If this does not help, will consider whether Risperdal is effective or trial of Depakote should be initiated.
[2017-03-07] MEDS: RisperiDONE 2 MG TABLET PO SCH (17:15)
[2017-03-07] MEDS: MIRTAZAPINE 15 MG SOLU-TAB PO SCH (22:31)
[2017-03-07] MEDS: BIMATOPROST 0.03% EACH EYE SCH (22:31)
[2017-03-07] MEDS: EYE EACH EYE SCH (22:31)
[2017-03-07] MEDS: DONEPEZIL 10 MG TABLET PO SCH (22:32)
--- NOTE | 2017-03-08 11:05 | Progress Note ---
<Arabella Saxena - Last Filed: 03/08/17 11:02> - Date 03/08/17 Subjective: Patient is seen today lying in her bed. She is awake but just blankly stares. She does not respond to any questions. She does allow me to examine her. After I walk away, she closes her eyes. Objective Vital signs: Temperature 98.0 F 03/08/17 08:00 Pulse Rate 64 03/08/17 08:00 Respiratory Rate 18 03/07/17 15:55 Blood Pressure 120/65 03/08/17 08:00 Pulse Oximetry 99 03/08/17 08:00 Height/Weight/BMI: Height 1.65 m Weight 74 kg Body Mass Index 27.1 - Constitutional Present: no acute distress, disheveled - Routine Respiratory Exam Present: CTA bilaterally. Absent: wheezes - Routine Cardiovascular Exam Present: RRR. Absent: murmur - Routine Abdominal Exam Present: soft, normoactive bowel sounds, non distended. Absent: tenderness - Routine Extremities Exam Present: no edema, normal capillary refill - Routine Skin Exam Present: dry, warm - Routine Neurological Exam Blankly stares. No response with talking to, or examining, pt. - Routine Lymphatic Exam Lymphatic: Absent: adenopathy - Routine Psychiatric Exam Present: unable to assess Results - Labs CBC & Chem 7: 03/04/17 11:07 03/06/17 06:56 Assessment and Plan (1) Major neurocognitive disorder Problem details: etiology unclear at this point, moderate to severe, with behavioral disturbance Current visit: Yes Status: Acute Assessment and Plan: Assessment Major neurocognitive disorder with behavior disturbance Alzheimer's Disease Coronary Artery Disease Hypertension Osteoarthritis Hypothyroidism-(on supplementation) low TSH -POA Hypokalemia-POA -resolved Hyperlipidemia Elevated LFTs-POA Plan Labs reviewed. Her liver enzymes are coming down. Will order further labs for tomorrow as she's not been drinking or eating much at all. Vitals are stable. Chart reviewed. She has been quite agitated and has needed frequent PRN's for her behaviors. Hospital Course Summary Disclaimer: The visit summary below is not to be considered part of the above Progress Note. Hospital Course: Assessment Major neurocognitive disorder with behavior disturbance Alzheimer's Disease Coronary Artery Disease Hypertension Osteoarthritis Hypothyroidism-(on supplementation) low TSH -POA Hypokalemia-POA Hyperlipidemia Elevated LFTs-POA 12/11/17 hospitalist consult Agree with admission to [facility] for evaluation and treatment by psychiatrist and to provide a safe environment. Chronic medical problems appear stable. She does have hypokalemia on admission. We'll replace potassium and repeat BMP. She is found to have a low TSH on admission. FreeT4 is pending. Decrease her levothyroxine dose from 175 g to 150 g she'll need follow-up TSH in 4-6 weeks on an outpatient basis. Her liver enzymes are mildly elevated. Will monitor closely. We will follow patient medically throughout her stay. Thank you for the consult. Patient's care to return to Dr. Salvador upon discharge. 03/08/17 Labs reviewed. Her liver enzymes are coming down. Will order further labs for tomorrow as she's not been drinking or eating much at all. Vitals are stable. Chart reviewed. She has been quite agitated and has needed frequent PRN's for her behaviors. <Sarita Laird L - Last Filed: 03/08/17 17:17> - Date 03/08/17 Objective Vital signs: Results - Labs CBC & Chem 7: 03/04/17 11:07 03/06/17 06:56 Assessment and Plan (1) Major neurocognitive disorder Problem details: etiology unclear at this point, moderate to severe, with behavioral disturbance Current visit: Yes Status: Acute Assessment and Plan: I have independently evaluated and examined this patient. I reviewed the chart, the patient's history, and the PITCH FILLER/PA's documented findings as above. We discussed and formulated the assessment and plan as above with additions as below: Mayuri was seen pacing the hallways in her pajamas and with an austrian wrapped around her shoulders. She did not respond to questions although lunged for me at 1 point. She grabbed the nurse accompanying her by the wrist and twisted her arm. Patient was ambulating stably and nursing reports improved oral intake compared to admission. Respirations are nonlabored but direct auscultation was not attempted. Vital signs unremarkable. LDL moderately elevated at 149. B-12 within normal range as was folic acid. Liver enzymes improved when reassessed 2 days ago. Hospital Course Summary Disclaimer: The visit summary below is not to be considered part of the above Progress Note.
[2017-03-08] MEDS: LEVOTHYROXINE 150 MCG TABLET PO SCH (11:55)
[2017-03-08] MEDS: ASPIRIN *EC* 81 MG TABLET PO SCH (11:56)
[2017-03-08] MEDS: MEMANTINE 10 MG TABLET PO SCH ×2 (11:56→20:02)
[2017-03-08] MEDS: LOSARTAN 50 MG TABLET PO SCH (11:56)
[2017-03-08] MEDS: RisperiDONE 1 MG TABLET PO SCH (11:56)
[2017-03-08] MEDS: RisperiDONE 2 MG TABLET PO SCH (17:12)
[2017-03-08] MEDS: DIVALPROEX SPRINKLE 125 MG CAPSULE PO SCH (17:12)
[2017-03-08] MEDS: BIMATOPROST 0.03% EACH EYE SCH (20:01)
[2017-03-08] MEDS: EYE EACH EYE SCH (20:01)
[2017-03-08] MEDS: MIRTAZAPINE 15 MG SOLU-TAB PO SCH (20:02)
[2017-03-08] MEDS: DONEPEZIL 10 MG TABLET PO SCH (20:02)
--- NOTE | 2017-03-08 21:50 | Neuropsych Progress Note ---
[facility] Subjective Date: 03/08/17 - Sujective/Severity of Illness Medications: Acetaminophen (Tylenol) 500 mg PO Q6H PRN PRN Reason: Pain Last Admin: 03/05/17 11:57 Dose: 500 mg Aspirin (Ecotrin) 81 mg PO DAILY [facility] Last Admin: 03/08/17 11:56 Dose: Not Given Benzocaine (Orajel) 1 applic MM PRN PRN PRN Reason: PRN orders Bimatoprost (Lumigan) 1 drop EACH EYE HS [facility] Last Admin: 03/08/17 20:01 Dose: 1 drop Divalproex Sodium (Depakote Sprinkle) 250 mg PO 18 [facility] Last Admin: 03/08/17 17:12 Dose: 250 mg Donepezil HCl (Aricept) 10 mg PO HS [facility] Last Admin: 03/08/17 20:02 Dose: 10 mg Epinephrine HCl (Epipen) 0.3 mg IM PRN PRN PRN Reason: Allergic reaction Haloperidol (Haldol) 0.5 mg PO Q6H PRN PRN Reason: Extreme agitation Last Admin: 03/05/17 11:57 Dose: 0.5 mg Haloperidol Lactate (Haldol) 0.5 mg IM Q6H PRN PRN Reason: Extreme agitation Last Admin: 03/07/17 20:30 Dose: 0.5 mg Hydrochlorothiazide (Microzide) 12.5 mg PO BIDWM [facility] Last Admin: 03/08/17 17:12 Dose: 12.5 mg Levothyroxine Sodium (Synthroid) 150 mcg PO ACB [facility] Last Admin: 03/08/17 11:55 Dose: Not Given Lorazepam (Ativan) 0.5 mg PO Q6H PRN PRN Reason: Extreme agitation Last Admin: 03/05/17 16:06 Dose: 0.5 mg Lorazepam (Ativan Inj) 0.5 mg IM Q6H PRN PRN Reason: Extreme agitation Last Admin: 03/07/17 20:30 Dose: 0.5 mg Losartan Potassium (Cozaar) 50 mg PO DAILY [facility] Last Admin: 03/08/17 11:56 Dose: Not Given Memantine (Namenda) 10 mg PO BID [facility] Last Admin: 03/08/17 20:02 Dose: 10 mg Metoprolol Succinate (Toprol Xl) 25 mg PO BIDWM [facility] Last Admin: 03/08/17 17:12 Dose: 25 mg Mirtazapine (Remeron Solu-Tab) 15 mg PO HS [facility] Last Admin: 03/08/17 20:02 Dose: 15 mg Potassium Chloride (Micro-K) 10 meq PO WB [facility] Last Admin: 03/08/17 11:55 Dose: Not Given Risperidone (Risperdal) 1 mg PO DAILY [facility] Last Admin: 03/08/17 11:56 Dose: Not Given Risperidone (Risperdal) 2 mg PO 18 [facility] Last Admin: 03/08/17 17:12 Dose: 2 mg Sodium Chloride (Iv Flush) 10 - 80 ml IVF PRN PRN PRN Reason: Flushing Triamcinolone Acetonide (Kenalog) 1 applic TOP BID PRN PRN Reason: PRN orders Subjective: Patient seen and chart reviewed. Case discussed with treatment team. Patient is sleeping during rounds but sister is as bedside. I also discussed symptoms, treatment plan with sister and we agreed to a trial of Depakote. Nursing staff report patient continues to be aggressive, intrusive, and eat very little. She was given PRNs on multiple occasions yesterday. Patient slept well overnight. VSS. Start Time: 10:20 Stop Time: 10:40 Mental Status Exam Vitals: Last Vital Signs Temp 97.5 F 03/08/17 21:36 Pulse 65 03/08/17 21:36 Resp 16 03/08/17 21:36 BP 136/68 03/08/17 21:36 Pulse Ox 100 03/08/17 16:00 Height: 1.65 m Weight: 74 kg - Mental Status Exam Muscle Strength/Tone: Weak Dressing: Casual Grooming: Fair Attitude: Uncooperative, Combative Motor Activity: Retardation, Pacing (at times) Eye Contact: Poor Speech: Slowed Volume: Soft Rhythm: Paucity of Language Orientation: Disoriented to time, Disoriented to place, Disoriented to situation , Oriented to person Mood: Irritable (labile affect on unit) Affect: Hostile Rate of Thoughts: Delayed Thought Organization: [place], Confused Associations: Illogical Abstract Reasoning: Impaired, concrete Thought Content: Other (Poverty of thought) Perception/Psychotic: Perception Normal Language: Naming Impaired Fund of Knowledge: Poor fund of knowledge Memory: Poor-immediate, Poor-recent, Poor-remote Suicidal Ideation: None Homicidal Ideation: Other (Does not answer; makes action as if to choke nurse) Insight: Impaired Judgement: Impaired Impulse Control: Poor - Laboratory Result Diagrams: 03/04/17 11:07 03/06/17 06:56 Assessment and Plan (1) Major neurocognitive disorder Problem details: etiology unclear at this point, moderate to severe, with behavioral disturbance Current visit: Yes Status: Acute (2) Hypertension Current visit: Yes Status: Acute (3) Coronary artery disease Current visit: Yes Status: Acute (4) Hyperlipidemia Current visit: Yes Status: Acute (5) Hypothyroidism Current visit: Yes Status: Acute (6) Elevated LFTs Current visit: Yes Status: Acute Hospital Course Summary Disclaimer: The visit summary below is not to be considered part of the above Progress Note. Hospital Course: Assessment Major neurocognitive disorder with behavior disturbance Alzheimer's Disease Coronary Artery Disease Hypertension Osteoarthritis Hypothyroidism-(on supplementation) low TSH -POA Hypokalemia-POA Hyperlipidemia Elevated LFTs-POA 03/05/17 hospitalist consult Agree with admission to [facility] for evaluation and treatment by psychiatrist and to provide a safe environment. Chronic medical problems appear stable. She does have hypokalemia on admission. We'll replace potassium and repeat BMP. She is found to have a low TSH on admission. FreeT4 is pending. Decrease her levothyroxine dose from 175 g to 150 g she'll need follow-up TSH in 4-6 weeks on an outpatient basis. Her liver enzymes are mildly elevated. Will monitor closely. We will follow patient medically throughout her stay. Thank you for the consult. Patient's care to return to Dr. Salvador upon discharge. 03/07/17 Psych: Increased Risperdal to 1mg PO q AM, 2mg PO daily at dinnertime as patient continues to be quite combative/aggressive. If this does not help, will consider whether Risperdal is effective or trial of Depakote should be initiated. 03/08/17 Psych: Will start trial of Depakote sprinkles 250mg PO daily at dinnertime; will likely decrease Risperdal back to 1mg PO BID tomorrow if Depakote seems to be more effective.
--- NOTE | 2017-03-09 08:40 | Neuropsych Progress Note ---
[facility] Subjective Date: 03/09/17 - Sujective/Severity of Illness Medications: Acetaminophen (Tylenol) 500 mg PO Q6H PRN PRN Reason: Pain Last Admin: 03/05/17 11:57 Dose: 500 mg Aspirin (Ecotrin) 81 mg PO DAILY [facility] Last Admin: 03/08/17 11:56 Dose: Not Given Benzocaine (Orajel) 1 applic MM PRN PRN PRN Reason: PRN orders Bimatoprost (Lumigan) 1 drop EACH EYE HS [facility] Last Admin: 03/08/17 20:01 Dose: 1 drop Divalproex Sodium (Depakote Sprinkle) 250 mg PO 18 [facility] Last Admin: 03/08/17 17:12 Dose: 250 mg Donepezil HCl (Aricept) 10 mg PO HS [facility] Last Admin: 03/08/17 20:02 Dose: 10 mg Epinephrine HCl (Epipen) 0.3 mg IM PRN PRN PRN Reason: Allergic reaction Haloperidol (Haldol) 0.5 mg PO Q6H PRN PRN Reason: Extreme agitation Last Admin: 03/05/17 11:57 Dose: 0.5 mg Haloperidol Lactate (Haldol) 0.5 mg IM Q6H PRN PRN Reason: Extreme agitation Last Admin: 03/07/17 20:30 Dose: 0.5 mg Hydrochlorothiazide (Microzide) 12.5 mg PO BIDWM [facility] Last Admin: 03/08/17 17:12 Dose: 12.5 mg Levothyroxine Sodium (Synthroid) 150 mcg PO ACB [facility] Last Admin: 03/08/17 11:55 Dose: Not Given Lorazepam (Ativan) 0.5 mg PO Q6H PRN PRN Reason: Extreme agitation Last Admin: 03/05/17 16:06 Dose: 0.5 mg Lorazepam (Ativan Inj) 0.5 mg IM Q6H PRN PRN Reason: Extreme agitation Last Admin: 03/07/17 20:30 Dose: 0.5 mg Losartan Potassium (Cozaar) 50 mg PO DAILY [facility] Last Admin: 03/08/17 11:56 Dose: Not Given Memantine (Namenda) 10 mg PO BID [facility] Last Admin: 03/08/17 20:02 Dose: 10 mg Metoprolol Succinate (Toprol Xl) 25 mg PO BIDWM [facility] Last Admin: 03/08/17 17:12 Dose: 25 mg Mirtazapine (Remeron Solu-Tab) 15 mg PO HS [facility] Last Admin: 03/08/17 20:02 Dose: 15 mg Potassium Chloride (Micro-K) 10 meq PO WB [facility] Last Admin: 03/08/17 11:55 Dose: Not Given Risperidone (Risperdal) 1 mg PO DAILY [facility] Last Admin: 03/08/17 11:56 Dose: Not Given Risperidone (Risperdal) 2 mg PO 18 [facility] Last Admin: 03/08/17 17:12 Dose: 2 mg Sodium Chloride (Iv Flush) 10 - 80 ml IVF PRN PRN PRN Reason: Flushing Triamcinolone Acetonide (Kenalog) 1 applic TOP BID PRN PRN Reason: PRN orders Subjective: Patient seen and chart reviewed. Case discussed with treatment team. Patient is sleeping during rounds. MSE below based in part on my last interaction with her. Nursing staff report patient continues to be mildly aggressive but improved from previous. Continuing to try various staff interventions to help in addition to pharmacological methods. She was more cooperative with HS cares last night and no PRNs were required. Patient slept well overnight. VSS. Appetite continues to be limited. Start Time: 07:00 Stop Time: 07:20 Mental Status Exam Vitals: Last Vital Signs Temp 97.5 F 03/08/17 21:36 Pulse 65 03/08/17 21:36 Resp 16 03/08/17 21:36 BP 136/68 03/08/17 21:36 Pulse Ox 100 03/08/17 16:00 Height: 1.65 m Weight: 74 kg - Mental Status Exam Muscle Strength/Tone: Weak Dressing: Casual Grooming: Fair Attitude: Other (becoming more cooperative, still intermittent agitation but milder) Motor Activity: Retardation Eye Contact: Poor Speech: Slowed Volume: Soft Rhythm: Paucity of Language Orientation: Disoriented to time, Disoriented to place, Disoriented to situation , Oriented to person Mood: Irritable, Other (lability decreasing) Affect: Blunted Rate of Thoughts: Delayed Thought Organization: [place], Confused Associations: Illogical Abstract Reasoning: Impaired, concrete Thought Content: Other (Poverty of thought) Perception/Psychotic: Perception Normal Language: Naming Impaired Fund of Knowledge: Poor fund of knowledge Memory: Poor-immediate, Poor-recent, Poor-remote Suicidal Ideation: None Homicidal Ideation: None Insight: Impaired Judgement: Impaired Impulse Control: Other (Limited though improved from admission) - Laboratory Result Diagrams: 03/09/17 08:02 03/09/17 08:02 Laboratory Results - last 24 hr 03/09/17 03/09/17 08:02 08:02 WBC 5.0 RBC 4.80 Hgb 13.5 Hct 42.2 MCV 87.9 MCH 28.1 MCHC 32.0 RDW Std Deviation 46.2 Plt Count 188 MPV 13.2 H Immature Gran % (Auto) 0.2 Neut % (Auto) 33.5 Lymph % (Auto) 52.8 H [place] % (Auto) 8.9 Eos % (Auto) 3.4 Baso % (Auto) 1.2 Neut # (Auto) 1.7 L Lymph # (Auto) 2.7 [place] # (Auto) 0.5 Eos # (Auto) 0.2 Baso # (Auto) 0.1 Abs Immat Gran (auto) 0.01 Turbidity < 20 Sodium 145 H Potassium 3.1 L Chloride 101 Carbon Dioxide 33 H Anion Gap 11 BUN 18.0 H Creatinine 1.0 GFR Calculation 55 BUN/Creatinine Ratio 18 Glucose 103 Calculated Osmolality 281 H Calcium 9.5 Total Bilirubin 0.70 Icterus Index < 2 AST 31 ALT 49 Alkaline Phosphatase 59 Total Protein 7.5 Albumin 4.2 Globulin 3.3 Albumin/Globulin Ratio 1.3 Specimen Hemolysis < 15 Assessment and Plan (1) Major neurocognitive disorder Problem details: etiology unclear at this point, moderate to severe, with behavioral disturbance Current visit: Yes Status: Acute (2) Hypertension Current visit: Yes Status: Acute (3) Coronary artery disease Current visit: Yes Status: Acute (4) Hyperlipidemia Current visit: Yes Status: Acute (5) Hypothyroidism Current visit: Yes Status: Acute (6) Elevated LFTs Current visit: Yes Status: Acute Continue current care; monitor behavior through day today after starting Depakote. If beneficial, could consider increasing Depakote and decreasing Risperdal. Hospital Course Summary Disclaimer: The visit summary below is not to be considered part of the above Progress Note. Hospital Course: Assessment Major neurocognitive disorder with behavior disturbance Alzheimer's Disease Coronary Artery Disease Hypertension Osteoarthritis Hypothyroidism-(on supplementation) low TSH -POA Hypokalemia-POA Hyperlipidemia Elevated LFTs-POA 03/05/17 hospitalist consult Agree with admission to [facility] for evaluation and treatment by psychiatrist and to provide a safe environment. Chronic medical problems appear stable. She does have hypokalemia on admission. We'll replace potassium and repeat BMP. She is found to have a low TSH on admission. FreeT4 is pending. Decrease her levothyroxine dose from 175 g to 150 g she'll need follow-up TSH in 4-6 weeks on an outpatient basis. Her liver enzymes are mildly elevated. Will monitor closely. We will follow patient medically throughout her stay. Thank you for the consult. Patient's care to return to Dr. Salvador upon discharge. 03/07/17 Psych: Increased Risperdal to 1mg PO q AM, 2mg PO daily at dinnertime as patient continues to be quite combative/aggressive. If this does not help, will consider whether Risperdal is effective or trial of Depakote should be initiated. 03/08/17 Psych: Will start trial of Depakote sprinkles 250mg PO daily at dinnertime; will likely decrease Risperdal back to 1mg PO BID tomorrow if Depakote seems to be more effective. 03/09/17 Psych: Continue current care; monitor behavior through day today after starting Depakote. If beneficial, could consider increasing Depakote and decreasing Risperdal.
[2017-03-09] MEDS: LOSARTAN 50 MG TABLET PO SCH (09:57)
[2017-03-09] MEDS: ASPIRIN *EC* 81 MG TABLET PO SCH (09:57)
[2017-03-09] MEDS: MEMANTINE 10 MG TABLET PO SCH ×2 (09:57→20:27)
[2017-03-09] MEDS: LEVOTHYROXINE 150 MCG TABLET PO SCH (09:57)
[2017-03-09] MEDS: RisperiDONE 1 MG TABLET PO SCH (09:57)
[2017-03-09] MEDS: DIVALPROEX SPRINKLE 125 MG CAPSULE PO SCH (17:11)
[2017-03-09] MEDS: RisperiDONE 2 MG TABLET PO SCH (17:12)
[2017-03-09] MEDS: EYE EACH EYE SCH (20:27)
[2017-03-09] MEDS: DONEPEZIL 10 MG TABLET PO SCH (20:27)
[2017-03-09] MEDS: BIMATOPROST 0.03% EACH EYE SCH (20:27)
[2017-03-09] MEDS: MIRTAZAPINE 15 MG SOLU-TAB PO SCH (20:27)
[2017-03-10] MEDS: LEVOTHYROXINE 150 MCG TABLET PO SCH (09:11)
[2017-03-10] MEDS: MEMANTINE 10 MG TABLET PO SCH ×2 (09:12→20:16)
[2017-03-10] MEDS: RisperiDONE 1 MG TABLET PO SCH (09:12)
[2017-03-10] MEDS: LOSARTAN 50 MG TABLET PO SCH (09:12)
[2017-03-10] MEDS: ASPIRIN *EC* 81 MG TABLET PO SCH (09:12)
[2017-03-10] MEDS: DIVALPROEX SPRINKLE 125 MG CAPSULE PO SCH (17:25)
[2017-03-10] MEDS: RisperiDONE 2 MG TABLET PO SCH (17:25)
--- NOTE | 2017-03-10 17:35 | Neuropsych Progress Note ---
[facility] Subjective Date: 03/10/17 - Sujective/Severity of Illness Medications: Acetaminophen (Tylenol) 500 mg PO Q6H PRN PRN Reason: Pain Last Admin: 03/05/17 11:57 Dose: 500 mg Aspirin (Ecotrin) 81 mg PO DAILY [facility] Last Admin: 03/10/17 09:12 Dose: 81 mg Benzocaine (Orajel) 1 applic MM PRN PRN PRN Reason: PRN orders Bimatoprost (Lumigan) 1 drop EACH EYE HS [facility] Last Admin: 03/09/17 20:27 Dose: 1 drop Divalproex Sodium (Depakote Sprinkle) 250 mg PO 18 [facility] Last Admin: 03/10/17 17:25 Dose: 250 mg Donepezil HCl (Aricept) 10 mg PO HS [facility] Last Admin: 03/09/17 20:27 Dose: 10 mg Epinephrine HCl (Epipen) 0.3 mg IM PRN PRN PRN Reason: Allergic reaction Haloperidol (Haldol) 0.5 mg PO Q6H PRN PRN Reason: Extreme agitation Last Admin: 03/05/17 11:57 Dose: 0.5 mg Haloperidol Lactate (Haldol) 0.5 mg IM Q6H PRN PRN Reason: Extreme agitation Last Admin: 03/07/17 20:30 Dose: 0.5 mg Hydrochlorothiazide (Microzide) 12.5 mg PO BIDWM [facility] Last Admin: 03/10/17 17:25 Dose: 12.5 mg Levothyroxine Sodium (Synthroid) 150 mcg PO ACB [facility] Last Admin: 03/10/17 09:11 Dose: 150 mcg Lorazepam (Ativan) 0.5 mg PO Q6H PRN PRN Reason: Extreme agitation Last Admin: 03/05/17 16:06 Dose: 0.5 mg Lorazepam (Ativan Inj) 0.5 mg IM Q6H PRN PRN Reason: Extreme agitation Last Admin: 03/07/17 20:30 Dose: 0.5 mg Losartan Potassium (Cozaar) 50 mg PO DAILY [facility] Last Admin: 03/10/17 09:12 Dose: 50 mg Memantine (Namenda) 10 mg PO BID [facility] Last Admin: 03/10/17 09:12 Dose: 10 mg Metoprolol Succinate (Toprol Xl) 25 mg PO BIDWM [facility] Last Admin: 03/10/17 17:25 Dose: 25 mg Mirtazapine (Remeron Solu-Tab) 15 mg PO HS [facility] Last Admin: 03/09/17 20:27 Dose: 15 mg Potassium Chloride (Micro-K) 10 meq PO WB [facility] Last Admin: 03/10/17 09:12 Dose: 10 meq Risperidone (Risperdal) 1 mg PO DAILY [facility] Last Admin: 03/10/17 09:12 Dose: 1 mg Risperidone (Risperdal) 2 mg PO 18 [facility] Last Admin: 03/10/17 17:25 Dose: 2 mg Sodium Chloride (Iv Flush) 10 - 80 ml IVF PRN PRN PRN Reason: Flushing Triamcinolone Acetonide (Kenalog) 1 applic TOP BID PRN PRN Reason: PRN orders Subjective: Patient seen and chart reviewed. Nursing reports pt is doing well. She is pleasant but confused. On face to face the pt is only oriented to self. She is pleasant and denies any pain. Tolerating meds. Voices no concerns at this time Start Time: 10:15 Stop Time: 10:30 Mental Status Exam Vitals: Last Vital Signs Temp 98.2 F 03/10/17 16:00 Pulse 68 03/10/17 16:00 Resp 18 03/10/17 16:00 BP 132/68 03/10/17 16:00 Pulse Ox 98 03/10/17 16:00 Height: 1.65 m Weight: 74 kg - Mental Status Exam Muscle Strength/Tone: Weak Dressing: Casual Grooming: Fair Attitude: Other (becoming more cooperative, still intermittent agitation but milder) Motor Activity: Retardation Eye Contact: Poor Speech: Slowed Volume: Soft Rhythm: Paucity of Language Orientation: Disoriented to time, Disoriented to place, Disoriented to situation , Oriented to person Mood: Irritable, Other (lability decreasing) Rate of Thoughts: Delayed Thought Organization: [place], Confused Associations: Illogical Abstract Reasoning: Impaired, concrete Thought Content: Other (Poverty of thought) Perception/Psychotic: Perception Normal Language: Naming Impaired Fund of Knowledge: Poor fund of knowledge Memory: Poor-immediate, Poor-recent, Poor-remote Suicidal Ideation: None Homicidal Ideation: None Insight: Impaired Judgement: Impaired Impulse Control: Other (Limited though improved from admission) - Laboratory Result Diagrams: 03/09/17 08:02 03/09/17 08:02 Assessment and Plan (1) Major neurocognitive disorder Problem details: etiology unclear at this point, moderate to severe, with behavioral disturbance Current visit: Yes Status: Acute (2) Hypertension Current visit: Yes Status: Acute (3) Coronary artery disease Current visit: Yes Status: Acute (4) Hyperlipidemia Current visit: Yes Status: Acute (5) Hypothyroidism Current visit: Yes Status: Acute (6) Elevated LFTs Current visit: Yes Status: Acute Hospital Course Summary Disclaimer: The visit summary below is not to be considered part of the above Progress Note. Hospital Course: Assessment Major neurocognitive disorder with behavior disturbance Alzheimer's Disease Coronary Artery Disease Hypertension Osteoarthritis Hypothyroidism-(on supplementation) low TSH -POA Hypokalemia-POA Hyperlipidemia Elevated LFTs-POA 03/05/17 hospitalist consult Agree with admission [facility] for evaluation and treatment by psychiatrist and to provide a safe environment. Chronic medical problems appear stable. She does have hypokalemia on admission. We'll replace potassium and repeat BMP. She is found to have a low TSH on admission. FreeT4 is pending. Decrease her levothyroxine dose from 175 g to 150 g she'll need follow-up TSH in 4-6 weeks on an outpatient basis. Her liver enzymes are mildly elevated. Will monitor closely. We will follow patient medically throughout her stay. Thank you for the consult. Patient's care to return to Dr. Salvador upon discharge. 03/07/17 Psych: Increased Risperdal to 1mg PO q AM, 2mg PO daily at dinnertime as patient continues to be quite combative/aggressive. If this does not help, will consider whether Risperdal is effective or trial of Depakote should be initiated. 03/08/17 Psych: Will start trial of Depakote sprinkles 250mg PO daily at dinnertime; will likely decrease Risperdal back to 1mg PO BID tomorrow if Depakote seems to be more effective. 03/09/17 Psych: Continue current care; monitor behavior through day today after starting Depakote. If beneficial, could consider increasing Depakote and decreasing Risperdal. 03/10/17 17:34 Nursing reports pt is doing a little better. Continue current care
[2017-03-10] MEDS: BIMATOPROST 0.03% EACH EYE SCH (20:16)
[2017-03-10] MEDS: EYE EACH EYE SCH (20:16)
[2017-03-10] MEDS: DONEPEZIL 10 MG TABLET PO SCH (20:16)
[2017-03-10] MEDS: MIRTAZAPINE 15 MG SOLU-TAB PO SCH (20:17)
[2017-03-11] MEDS: LEVOTHYROXINE 150 MCG TABLET PO SCH ×2 (10:45→17:23)
[2017-03-11] MEDS: MEMANTINE 10 MG TABLET PO SCH ×3 (10:45→19:47)
[2017-03-11] MEDS: ASPIRIN *EC* 81 MG TABLET PO SCH ×2 (10:46→17:23)
[2017-03-11] MEDS: RisperiDONE 1 MG TABLET PO SCH ×2 (10:46→17:23)
[2017-03-11] MEDS: LOSARTAN 50 MG TABLET PO SCH ×2 (10:46→17:23)
--- NOTE | 2017-03-11 11:18 | Neuropsych Progress Note ---
[facility] Subjective Date: 03/11/17 - Sujective/Severity of Illness Medications: Acetaminophen (Tylenol) 500 mg PO Q6H PRN PRN Reason: Pain Last Admin: 03/05/17 11:57 Dose: 500 mg Aspirin (Ecotrin) 81 mg PO DAILY [facility] Last Admin: 03/11/17 10:46 Dose: 81 mg Benzocaine (Orajel) 1 applic MM PRN PRN PRN Reason: PRN orders Bimatoprost (Lumigan) 1 drop EACH EYE HS [facility] Last Admin: 03/10/17 20:16 Dose: 1 drop Divalproex Sodium (Depakote Sprinkle) 250 mg PO 18 [facility] Last Admin: 03/10/17 17:25 Dose: 250 mg Donepezil HCl (Aricept) 10 mg PO HS [facility] Last Admin: 03/10/17 20:16 Dose: 10 mg Epinephrine HCl (Epipen) 0.3 mg IM PRN PRN PRN Reason: Allergic reaction Haloperidol (Haldol) 0.5 mg PO Q6H PRN PRN Reason: Extreme agitation Last Admin: 03/05/17 11:57 Dose: 0.5 mg Haloperidol Lactate (Haldol) 0.5 mg IM Q6H PRN PRN Reason: Extreme agitation Last Admin: 03/07/17 20:30 Dose: 0.5 mg Hydrochlorothiazide (Microzide) 12.5 mg PO BIDWM [facility] Last Admin: 03/11/17 10:45 Dose: 12.5 mg Levothyroxine Sodium (Synthroid) 150 mcg PO ACB [facility] Last Admin: 03/11/17 10:45 Dose: 150 mcg Lorazepam (Ativan) 0.5 mg PO Q6H PRN PRN Reason: Extreme agitation Last Admin: 03/05/17 16:06 Dose: 0.5 mg Lorazepam (Ativan Inj) 0.5 mg IM Q6H PRN PRN Reason: Extreme agitation Last Admin: 03/07/17 20:30 Dose: 0.5 mg Losartan Potassium (Cozaar) 50 mg PO DAILY [facility] Last Admin: 03/11/17 10:46 Dose: 50 mg Memantine (Namenda) 10 mg PO BID [facility] Last Admin: 03/11/17 10:45 Dose: 10 mg Metoprolol Succinate (Toprol Xl) 25 mg PO BIDWM [facility] Last Admin: 03/11/17 10:50 Dose: 25 mg Mirtazapine (Remeron Solu-Tab) 15 mg PO HS [facility] Last Admin: 03/10/17 20:17 Dose: 15 mg Potassium Chloride (Micro-K) 10 meq PO WB [facility] Last Admin: 03/11/17 10:46 Dose: 10 meq Risperidone (Risperdal) 1 mg PO DAILY [facility] Last Admin: 03/11/17 10:46 Dose: 1 mg Risperidone (Risperdal) 2 mg PO 18 [facility] Last Admin: 03/10/17 17:25 Dose: 2 mg Sodium Chloride (Iv Flush) 10 - 80 ml IVF PRN PRN PRN Reason: Flushing Triamcinolone Acetonide (Kenalog) 1 applic TOP BID PRN PRN Reason: PRN orders Subjective: Patient seen and chart reviewed. Nursing reports pt is irritable and scratching and pinching at staff at times. She does exit seek at times. Slept well and has a good appetite. On face to face the pt is guarded and confused. She is only oriented to self. She has a flat affect. She denies any pain. Tolerating meds Start Time: 10:15 Stop Time: 10:30 Mental Status Exam Vitals: Last Vital Signs Temp 98 F 03/10/17 21:26 Pulse 68 03/10/17 21:26 Resp 14 03/10/17 21:26 BP 108/66 03/10/17 21:26 Pulse Ox 98 03/10/17 21:26 Height: 1.65 m Weight: 74 kg - Mental Status Exam Muscle Strength/Tone: Weak Dressing: Casual Grooming: Fair Attitude: Other (becoming more cooperative, still intermittent agitation but milder) Motor Activity: Retardation Eye Contact: Poor Speech: Slowed Volume: Soft Rhythm: Paucity of Language Orientation: Disoriented to time, Disoriented to place, Disoriented to situation , Oriented to person Mood: Irritable, Other (lability decreasing) Rate of Thoughts: Delayed Thought Organization: [place], Confused Associations: Illogical Abstract Reasoning: Impaired, concrete Thought Content: Other (Poverty of thought) Perception/Psychotic: Perception Normal Language: Naming Impaired Fund of Knowledge: Poor fund of knowledge Memory: Poor-immediate, Poor-recent, Poor-remote Suicidal Ideation: None Homicidal Ideation: None Insight: Impaired Judgement: Impaired Impulse Control: Other (Limited though improved from admission) - Laboratory Result Diagrams: 03/09/17 08:02 03/09/17 08:02 Assessment and Plan (1) Major neurocognitive disorder Problem details: etiology unclear at this point, moderate to severe, with behavioral disturbance Current visit: Yes Status: Acute (2) Hypertension Current visit: Yes Status: Acute (3) Coronary artery disease Current visit: Yes Status: Acute (4) Hyperlipidemia Current visit: Yes Status: Acute (5) Hypothyroidism Current visit: Yes Status: Acute (6) Elevated LFTs Current visit: Yes Status: Acute Hospital Course Summary Disclaimer: The visit summary below is not to be considered part of the above Progress Note. Hospital Course: Assessment Major neurocognitive disorder with behavior disturbance Alzheimer's Disease Coronary Artery Disease Hypertension Osteoarthritis Hypothyroidism-(on supplementation) low TSH -POA Hypokalemia-POA Hyperlipidemia Elevated LFTs-POA 03/05/17 hospitalist consult Agree with admission to [facility] for evaluation and treatment by psychiatrist and to provide a safe environment. Chronic medical problems appear stable. She does have hypokalemia on admission. We'll replace potassium and repeat BMP. She is found to have a low TSH on admission. FreeT4 is pending. Decrease her levothyroxine dose from 175 g to 150 g she'll need follow-up TSH in 4-6 weeks on an outpatient basis. Her liver enzymes are mildly elevated. Will monitor closely. We will follow patient medically throughout her stay. Thank you for the consult. Patient's care to return to Dr. Salvador upon discharge. 03/07/17 Psych: Increased Risperdal to 1mg PO q AM, 2mg PO daily at dinnertime as patient continues to be quite combative/aggressive. If this does not help, will consider whether Risperdal is effective or trial of Depakote should be initiated. 03/08/17 Psych: Will start trial of Depakote sprinkles 250mg PO daily at dinnertime; will likely decrease Risperdal back to 1mg PO BID tomorrow if Depakote seems to be more effective. 03/09/17 Psych: Continue current care; monitor behavior through day today after starting Depakote. If beneficial, could consider increasing Depakote and decreasing Risperdal. 03/10/17 17:34 Nursing reports pt is doing a little better. Continue current care 03/11/17 11:17 Continues to be agitated and aggressive at times. Continue current care
--- NOTE | 2017-03-11 12:46 | Progress Note ---
Progress Note: Patient's chart reviewed. Overall stable except her potassium was low on . SHe is on potassium supplement and Losartan. WIll repeat electrolytes in am to follow potassium level.
[2017-03-11] MEDS: DIVALPROEX SPRINKLE 125 MG CAPSULE PO SCH (17:10)
[2017-03-11] MEDS: RisperiDONE 2 MG TABLET PO SCH (17:11)
[2017-03-11] MEDS: BIMATOPROST 0.03% EACH EYE SCH (19:45)
[2017-03-11] MEDS: EYE EACH EYE SCH (19:45)
[2017-03-11] MEDS: DONEPEZIL 10 MG TABLET PO SCH (19:46)
[2017-03-11] MEDS: MIRTAZAPINE 15 MG SOLU-TAB PO SCH (19:46)
[2017-03-12] MEDS: DONEPEZIL 10 MG TABLET PO SCH ×3 (05:25→21:06)
[2017-03-12] MEDS: MEMANTINE 10 MG TABLET PO SCH ×4 (05:25→21:05)
[2017-03-12] MEDS: BIMATOPROST 0.03% EACH EYE SCH ×3 (05:25→21:05)
[2017-03-12] MEDS: EYE EACH EYE SCH ×3 (05:25→21:05)
[2017-03-12] MEDS: MIRTAZAPINE 15 MG SOLU-TAB PO SCH ×2 (05:25→20:37)
[2017-03-12] MEDS: ASPIRIN *EC* 81 MG TABLET PO SCH (09:33)
[2017-03-12] MEDS: LOSARTAN 50 MG TABLET PO SCH (09:33)
[2017-03-12] MEDS: RisperiDONE 1 MG TABLET PO SCH (09:34)
[2017-03-12] MEDS: LEVOTHYROXINE 150 MCG TABLET PO SCH (09:35)
--- NOTE | 2017-03-12 12:19 | Progress Note ---
- Date 03/12/17 Subjective: Jane was walking down the hallway with staff. Her gait was slow but steady. When I asked her name, she repeated my question, and asked my name instead. She started to walk away, and when she stopped I approached her again. She didn't answer questions. As soon as I took my stethoscope off my neck she turned and walked away. Staff report that she's been pleasant and cooperative, but this morning has been refusing the potassium tablets. Objective Vital signs: Temperature 97.0 F 03/12/17 08:00 Pulse Rate 99 03/12/17 08:00 Respiratory Rate 16 03/12/17 08:00 Blood Pressure 129/81 03/12/17 08:00 Pulse Oximetry 98 03/12/17 08:00 Height/Weight/BMI: Height 1.65 m Weight 74 kg Body Mass Index 27.1 - Constitutional Present: no acute distress, well nourished, well developed - Routine HEENT Exam Head: Present: normocephalic ENT: Present: mucous membranes moist - Routine Respiratory Exam Comments: no acute distress - Routine Extremities Exam Present: no edema (no visible edema to BLE) - Routine Musculoskeletal Exam Musculoskeletal: Present: normal gait - Routine Skin Exam Present: dry - Routine Neurological Exam Present: alert - Routine Psychiatric Exam Absent: normal thought process Results - Labs CBC & Chem 7: 03/09/17 08:02 03/12/17 06:27 Assessment and Plan (1) Major neurocognitive disorder Problem details: etiology unclear at this point, moderate to severe, with behavioral disturbance Current visit: Yes Status: Acute Assessment and Plan: Assessment Major neurocognitive disorder with behavior disturbance Alzheimer's Disease Coronary Artery Disease Hypertension Osteoarthritis Hypothyroidism-(on supplementation) low TSH -POA Hypokalemia-POA Hyperlipidemia Elevated LFTs-POA, resolved Plan extra KDur added for K of 2.9 - reassess BMP and mg in am. May need to give oral suspension - she is refusing the pills. Na improved to 142. Vitals stable. Behaviors still problematic - pinching, scratching staff, exit seeking. Psych progress note reviewed. - Physician Narrative Narrative: Date: 03/12/17 Time: 1213 Hospital Course Summary Disclaimer: The visit summary below is not to be considered part of the above Progress Note. Hospital Course: Assessment Major neurocognitive disorder with behavior disturbance Alzheimer's Disease Coronary Artery Disease Hypertension Osteoarthritis Hypothyroidism-(on supplementation) low TSH -POA Hypokalemia-POA Hyperlipidemia Elevated LFTs-POA 03/05/17 hospitalist consult Agree with admission to [facility] for evaluation and treatment by psychiatrist and to provide a safe environment. Chronic medical problems appear stable. She does have hypokalemia on admission. We'll replace potassium and repeat BMP. She is found to have a low TSH on admission. FreeT4 is pending. Decrease her levothyroxine dose from 175 g to 150 g she'll need follow-up TSH in 4-6 weeks on an outpatient basis. Her liver enzymes are mildly elevated. Will monitor closely. We will follow patient medically throughout her stay. Thank you for the consult. Patient's care to return to Dr. Salvador upon discharge. 03/07/17 Psych: Increased Risperdal to 1mg PO q AM, 2mg PO daily at dinnertime as patient continues to be quite combative/aggressive. If this does not help, will consider whether Risperdal is effective or trial of Depakote should be initiated. 03/08/17 Psych: Will start trial of Depakote sprinkles 250mg PO daily at dinnertime; will likely decrease Risperdal back to 1mg PO BID tomorrow if Depakote seems to be more effective. 03/09/17 Psych: Continue current care; monitor behavior through day today after starting Depakote. If beneficial, could consider increasing Depakote and decreasing Risperdal. 03/10/17 17:34 Nursing reports pt is doing a little better. Continue current care 03/11/17 11:17 Continues to be agitated and aggressive at times. Continue current care 03/12/17 extra KDur added for K of 2.9 - reassess BMP and mg in am. May need to give oral suspension - she is refusing the pills. Na improved to 142. Vitals stable.
--- NOTE | 2017-03-12 16:50 | Neuropsych Progress Note ---
[facility] Subjective Date: 03/12/17 - Sujective/Severity of Illness Medications: Acetaminophen (Tylenol) 500 mg PO Q6H PRN PRN Reason: Pain Last Admin: 03/05/17 11:57 Dose: 500 mg Aspirin (Ecotrin) 81 mg PO DAILY [facility] Last Admin: 03/12/17 09:33 Dose: Not Given Benzocaine (Orajel) 1 applic MM PRN PRN PRN Reason: PRN orders Bimatoprost (Lumigan) 1 drop EACH EYE [facility] Last Admin: 03/12/17 05:25 Dose: Not Given Divalproex Sodium (Depakote Sprinkle) 250 mg PO 18 [facility] Last Admin: 03/11/17 17:10 Dose: 250 mg Donepezil HCl (Aricept) 10 mg PO [facility] Last Admin: 03/12/17 05:25 Dose: Not Given Epinephrine HCl (Epipen) 0.3 mg IM PRN PRN PRN Reason: Allergic reaction Haloperidol (Haldol) 0.5 mg PO Q6H PRN PRN Reason: Extreme agitation Last Admin: 03/05/17 11:57 Dose: 0.5 mg Haloperidol Lactate (Haldol) 0.5 mg IM Q6H PRN PRN Reason: Extreme agitation Last Admin: 03/07/17 20:30 Dose: 0.5 mg Hydrochlorothiazide (Microzide) 12.5 mg PO BIDWM [facility] Last Admin: 03/12/17 10:16 Dose: Not Given Levothyroxine Sodium (Synthroid) 150 mcg PO ACB [facility] Last Admin: 03/12/17 09:35 Dose: Not Given Lorazepam (Ativan) 0.5 mg PO Q6H PRN PRN Reason: Extreme agitation Last Admin: 03/05/17 16:06 Dose: 0.5 mg Lorazepam (Ativan Inj) 0.5 mg IM Q6H PRN PRN Reason: Extreme agitation Last Admin: 03/07/17 20:30 Dose: 0.5 mg Losartan Potassium (Cozaar) 50 mg PO DAILY [facility] Last Admin: 03/12/17 09:33 Dose: Not Given Magnesium Hydroxide (Mom) 30 ml PO DAILY PRN PRN Reason: Constipation Memantine (Namenda) 10 mg PO BID [facility] Last Admin: 03/12/17 09:34 Dose: Not Given Metoprolol Succinate (Toprol Xl) 25 mg PO BIDWM [facility] Last Admin: 03/12/17 09:33 Dose: Not Given Mirtazapine (Remeron Solu-Tab) 15 mg PO HS [facility] Last Admin: 03/12/17 05:25 Dose: Not Given Potassium Chloride (Micro-K) 20 meq PO BIDWM [facility] Potassium Chloride (K-Dur) 40 meq PO O ONE Stop: 03/12/17 17:01 Risperidone (Risperdal) 1 mg PO DAILY [facility] Last Admin: 03/12/17 09:34 Dose: Not Given Risperidone (Risperdal) 2 mg PO 18 [facility] Last Admin: 03/11/17 17:11 Dose: 2 mg Sodium Chloride (Iv Flush) 10 - 80 ml IVF PRN PRN PRN Reason: Flushing Triamcinolone Acetonide (Kenalog) 1 applic TOP BID PRN PRN Reason: PRN orders Subjective: Patient seen and chart reviewed. Case discussed with treatment team. On interview, patient looks at me but does not answer questions. She comes up to the window at the nurses station and looks in but does not engage in conversation. Nursing staff report patient continues to grab/pinch but with less frequency from previous and is improved overall. However, she continues to refuse many medications and is eating very little. K was 2.9 this morning; deferred to hospitalist. It is not believed patient would tolerate an IV well. Patient slept 9 hours overnight. VSS. Patient is eating well. Psychotropic PRNs required in the past 24 hours: none. Discussed diagnosis, symptoms, treatment and progress with sister/RAH Hernández, who is in agreement with consulting Hospice for further care. Start Time: 09:40 Stop Time: 10:20 Care: >50% of this visit spent in counseling/coordination care. Mental Status Exam Vitals: Last Vital Signs Temp 96.8 F 03/12/17 16:00 Pulse 84 03/12/17 16:00 Resp 16 03/12/17 16:00 BP 110/69 03/12/17 16:00 Pulse Ox 100 03/12/17 16:00 Height: 1.65 m Weight: 74 kg - Mental Status Exam Muscle Strength/Tone: Weak Dressing: Casual Grooming: Fair Attitude: Other (becoming more cooperative, still intermittent agitation but milder) Motor Activity: Retardation Eye Contact: Poor Speech: Slowed Volume: Soft Rhythm: Paucity of Language Orientation: Disoriented to time, Disoriented to place, Disoriented to situation , Oriented to person Mood: Neutral Affect: Blunted Rate of Thoughts: Delayed Thought Organization: [place], Confused Associations: Illogical Abstract Reasoning: Impaired, concrete Thought Content: Other (Poverty of thought) Perception/Psychotic: Perception Normal Language: Naming Impaired Fund of Knowledge: Poor fund of knowledge Memory: Poor-immediate, Poor-recent, Poor-remote Suicidal Ideation: None Homicidal Ideation: None Insight: Impaired Judgement: Impaired Impulse Control: Other (Limited though improved from admission) - Laboratory Result Diagrams: 03/09/17 08:02 03/12/17 06:27 Laboratory Results - last 24 hr 03/12/17 06:27 Turbidity < 20 Sodium 142 Potassium 2.9 L* Chloride 97 L Carbon Dioxide 34 H Anion Gap 11 BUN 16.0 Creatinine 1.0 GFR Calculation 55 BUN/Creatinine Ratio 16 Glucose 97 Calculated Osmolality 274 Calcium 9.5 Total Bilirubin 0.80 Icterus Index < 2 AST 29 ALT 40 Alkaline Phosphatase 57 Total Protein 7.5 Albumin 4.2 Globulin 3.3 Albumin/Globulin Ratio 1.3 Specimen Hemolysis < 15 Assessment and Plan (1) Major neurocognitive disorder Problem details: Alzheimer's, moderate to severe, with behavioral disturbance Current visit: Yes Status: Acute (2) Hypertension Current visit: Yes Status: Acute (3) Coronary artery disease Current visit: Yes Status: Acute (4) Hyperlipidemia Current visit: Yes Status: Acute (5) Hypothyroidism Current visit: Yes Status: Acute (6) Elevated LFTs Current visit: Yes Status: Acute Sister/DPOA would like to consult Hospice care - will change Risperdal to M-tab and defer further med changes until this has been done. Hospital Course Summary Disclaimer: The visit summary below is not to be considered part of the above Progress Note. Hospital Course: Assessment Major neurocognitive disorder with behavior disturbance Alzheimer's Disease Coronary Artery Disease Hypertension Osteoarthritis Hypothyroidism-(on supplementation) low TSH -POA Hypokalemia-POA Hyperlipidemia Elevated LFTs-POA 03/05/17 hospitalist consult Agree with admission to [facility] for evaluation and treatment by psychiatrist and to provide a safe environment. Chronic medical problems appear stable. She does have hypokalemia on admission. We'll replace potassium and repeat BMP. She is found to have a low TSH on admission. FreeT4 is pending. Decrease her levothyroxine dose from 175 g to 150 g she'll need follow-up TSH in 4-6 weeks on an outpatient basis. Her liver enzymes are mildly elevated. Will monitor closely. We will follow patient medically throughout her stay. Thank you for the consult. Patient's care to return to Dr. Salvador upon discharge. 03/07/17 Psych: Increased Risperdal to 1mg PO q AM, 2mg PO daily at dinnertime as patient continues to be quite combative/aggressive. If this does not help, will consider whether Risperdal is effective or trial of Depakote should be initiated. 03/08/17 Psych: Will start trial of Depakote sprinkles 250mg PO daily at dinnertime; will likely decrease Risperdal back to 1mg PO BID tomorrow if Depakote seems to be more effective. 03/09/17 Psych: Continue current care; monitor behavior through day today after starting Depakote. If beneficial, could consider increasing Depakote and decreasing Risperdal. 03/10/17 17:34 Nursing reports pt is doing a little better. Continue current care 03/11/17 11:17 Continues to be agitated and aggressive at times. Continue current care 03/12/17 extra KDur added for K of 2.9 - reassess BMP and mg in am. May need to give oral suspension - she is refusing the pills. Na improved to 142. Vitals stable. 03/12/17 Psych: Sister/DPOA would like to consult Hospice care - will change Risperdal to M-tab and defer further med changes until this has been done.
[2017-03-12] MEDS: DIVALPROEX SPRINKLE 125 MG CAPSULE PO SCH ×2 (17:34→18:01)
[2017-03-12] MEDS: RisperiDONE 2 MG TABLET PO SCH ×2 (17:34→18:00)
[2017-03-13] MEDS: LEVOTHYROXINE 150 MCG TABLET PO SCH (06:50)
[2017-03-13] MEDS: ASPIRIN *EC* 81 MG TABLET PO SCH ×2 (09:02→12:37)
[2017-03-13] MEDS: RisperiDONE 1 MG TABLET PO SCH ×2 (09:02→12:37)
[2017-03-13] MEDS: MEMANTINE 10 MG TABLET PO SCH ×3 (09:02→20:13)
[2017-03-13] MEDS: LOSARTAN 50 MG TABLET PO SCH ×2 (09:03→12:37)
[2017-03-13] MEDS: POTASSIUM CHLORIDE 20 MEQ/15 ML ORAL LIQUID PO ONE ×2 (12:09→17:13)
[2017-03-13] MEDS ORDERED: HALOPERIDOL 5 MG/ML INJECTION IM ONE (15:40)
[2017-03-13] MEDS: RisperiDONE 2 MG TABLET PO SCH (17:14)
[2017-03-13] MEDS: DIVALPROEX SPRINKLE 125 MG CAPSULE PO SCH (17:14)
[2017-03-13] MEDS ORDERED: POTASSIUM CHLORIDE 20 MEQ/15 ML ORAL LIQUID PO ONE (17:30)
[2017-03-13 20:11] VITALS: RESP 18
[2017-03-13] MEDS: DONEPEZIL 10 MG TABLET PO SCH (20:13)
[2017-03-13] MEDS: BIMATOPROST 0.03% EACH EYE SCH (20:13)
[2017-03-13] MEDS: MIRTAZAPINE 15 MG SOLU-TAB PO SCH (20:13)
[2017-03-13] MEDS: EYE EACH EYE SCH (20:13)
--- NOTE | 2017-03-13 20:23 | Neuropsych Progress Note ---
[facility] Subjective Date: 03/14/17 - Sujective/Severity of Illness Medications: Acetaminophen (Tylenol) 500 mg PO Q6H PRN PRN Reason: Pain Last Admin: 03/05/17 11:57 Dose: 500 mg Aspirin (Ecotrin) 81 mg PO DAILY [facility] Last Admin: 03/13/17 12:37 Dose: Not Given Benzocaine (Orajel) 1 applic MM PRN PRN PRN Reason: PRN orders Bimatoprost (Lumigan) 1 drop EACH EYE [facility] Last Admin: 03/13/17 20:13 Dose: Not Given Divalproex Sodium (Depakote Sprinkle) 250 mg PO 18 [facility] Last Admin: 03/13/17 17:14 Dose: Not Given Donepezil HCl (Aricept) 10 mg PO HS [facility] Last Admin: 03/13/17 20:13 Dose: Not Given Epinephrine HCl (Epipen) 0.3 mg IM PRN PRN PRN Reason: Allergic reaction Haloperidol (Haldol) 0.5 mg PO Q6H PRN PRN Reason: Extreme agitation Last Admin: 03/05/17 11:57 Dose: 0.5 mg Haloperidol Lactate (Haldol) 0.5 mg IM Q6H PRN PRN Reason: Extreme agitation Last Admin: 03/07/17 20:30 Dose: 0.5 mg Hydrochlorothiazide (Microzide) 12.5 mg PO BIDWM [facility] Last Admin: 03/13/17 17:12 Dose: Not Given Levothyroxine Sodium (Synthroid) 150 mcg PO ACB [facility] Last Admin: 03/13/17 06:50 Dose: Not Given Lorazepam (Ativan) 0.5 mg PO Q6H PRN PRN Reason: Extreme agitation Last Admin: 03/05/17 16:06 Dose: 0.5 mg Lorazepam (Ativan Inj) 0.5 mg IM Q6H PRN PRN Reason: Extreme agitation Last Admin: 03/07/17 20:30 Dose: 0.5 mg Losartan Potassium (Cozaar) 50 mg PO DAILY [facility] Last Admin: 03/13/17 12:37 Dose: Not Given Magnesium Hydroxide (Mom) 30 ml PO DAILY PRN PRN Reason: Constipation Memantine (Namenda) 10 mg PO BID [facility] Last Admin: 03/13/17 20:13 Dose: Not Given Metoprolol Succinate (Toprol Xl) 25 mg PO BIDWM [facility] Last Admin: 03/13/17 17:13 Dose: Not Given Mirtazapine (Remeron Solu-Tab) 15 mg PO HS [facility] Last Admin: 03/13/17 20:13 Dose: Not Given Potassium Chloride (Kcl Oral Liq) 30 meq PO BIDWM [facility] Risperidone (Risperdal) 1 mg PO DAILY [facility] Last Admin: 03/13/17 12:37 Dose: Not Given Risperidone (Risperdal) 2 mg PO 18 [facility] Last Admin: 03/13/17 17:14 Dose: Not Given Sodium Chloride (Iv Flush) 10 - 80 ml IVF PRN PRN PRN Reason: Flushing Triamcinolone Acetonide (Kenalog) 1 applic TOP BID PRN PRN Reason: PRN orders Subjective: Patient seen and chart reviewed. Case discussed with treatment team. Patient was sleeping during rounds. She was not woken as nursing staff are attempting to keep patient quarantined in room as she tested positive for GI bacteria (See hospitalist note) and we are using Ativan PRN to do so. Nursing staff report patient continues to grab/pinch but with less frequency from previous and is improved overall. However, she continues to refuse many medications and is eating very little. Potassium has been low. It is not believed patient would tolerate an IV well. Patient slept well overnight. VSS. Patient is eating well. Psychotropic PRNs required in the past 24 hours: none. Discussed diagnosis, symptoms, treatment and progress with sister/RAH Hernández on 03/12, who is in agreement with consulting Hospice for further care. Start Time: 11:20 Stop Time: 11:40 Mental Status Exam Vitals: Last Vital Signs Temp 97.8 F 03/13/17 16:00 Pulse 72 03/13/17 20:09 Resp 18 03/13/17 20:09 BP 135/74 03/13/17 20:09 Pulse Ox 97 03/13/17 20:09 Height: 1.65 m Weight: 73.7 kg - Mental Status Exam Muscle Strength/Tone: Weak Dressing: Casual Grooming: Fair Attitude: Other (becoming more cooperative, still intermittent agitation but milder) Motor Activity: Retardation Eye Contact: Poor Speech: Slowed Volume: Soft Rhythm: Paucity of Language Orientation: Disoriented to time, Disoriented to place, Disoriented to situation , Oriented to person Mood: Neutral Rate of Thoughts: Delayed Thought Organization: Lucas, Confused Associations: Illogical Abstract Reasoning: Impaired, concrete Thought Content: Other (Poverty of thought) Perception/Psychotic: Perception Normal Language: Naming Impaired Fund of Knowledge: Poor fund of knowledge Memory: Poor-immediate, Poor-recent, Poor-remote Suicidal Ideation: None Homicidal Ideation: None Insight: Impaired Judgement: Impaired Impulse Control: Other (Limited though improved from admission) - Laboratory Result Diagrams: 03/09/17 08:02 03/14/17 06:36 Laboratory Results - last 24 hr 03/13/17 03/13/17 01:07 06:48 Turbidity < 20 Sodium 141 Potassium 3.0 L Chloride 97 L Carbon Dioxide 32 H Anion Gap 12 BUN 14.0 Creatinine 1.0 GFR Calculation 55 BUN/Creatinine Ratio 14 Glucose 98 Calculated Osmolality 272 Calcium 9.5 Magnesium 1.9 Icterus Index < 2 Specimen Hemolysis < 15 Stl Cyclospora species Negative Stool Rotavirus A PCR Negative Stool Adenovirus (PCR) Detected A Stool Astrovirus (PCR) Negative Stool Campylobacter PCR Negative Stl C.difficile Tox PCR Negative Stool Cryptosporidium PCR Negative Stl E.coli Shiga Toxins Negative Stool E coli O157 PCR N/a Stl Enterotoxigenic E PCR Negative Stool EPEC (PCR) Negative Stool EAEC (PCR) Negative Stool Entamoeba (PCR) Negative Stool Giardia Lamblia PCR Negative Stool Salmonella PCR Negative Stool Sapovirus (PCR) Negative Stl P. shigelloides PCR Negative Stl Shigella/EIEC PCR Negative St Y.enterocolitica PCR Detected A Stool Vibrio (PCR) Negative Stl Vibrio cholera PCR Negative Stl Norovirus GI/GII PCR Negative Assessment and Plan (1) Major neurocognitive disorder Problem details: Alzheimer's, moderate to severe, with behavioral disturbance Status: Acute (2) Hypertension Status: Acute (3) Coronary artery disease Status: Acute (4) Hyperlipidemia Status: Acute (5) Hypothyroidism Status: Acute (6) Elevated LFTs Status: Acute (7) Hypokalemia due to inadequate potassium intake Status: Acute (8) Gastrointestinal infection Status: Acute Plan to discharge back to care facility with Hospice support on 03/14/17 (if GI symptoms resolved) per sister/DPOA's wishes. Will use Ativan PRN to help patient remain in room as long as necessary for infection control, transport, etc. Hospice will take over medications after discharge. Hospital Course Summary Disclaimer: The visit summary below is not to be considered part of the above Progress Note. Hospital Course: Assessment Major neurocognitive disorder with behavior disturbance Alzheimer's Disease Coronary Artery Disease Hypertension Osteoarthritis Hypothyroidism-(on supplementation) low TSH -POA Hypokalemia-POA Hyperlipidemia Elevated LFTs-POA 03/05/17 hospitalist consult Agree with admission to [facility] for evaluation and treatment by psychiatrist and to provide a safe environment. Chronic medical problems appear stable. She does have hypokalemia on admission. We'll replace potassium and repeat BMP. She is found to have a low TSH on admission. FreeT4 is pending. Decrease her levothyroxine dose from 175 g to 150 g she'll need follow-up TSH in 4-6 weeks on an outpatient basis. Her liver enzymes are mildly elevated. Will monitor closely. We will follow patient medically throughout her stay. Thank you for the consult. Patient's care to return to Dr. Salvador upon discharge. 03/07/17 Psych: Increased Risperdal to 1mg PO q AM, 2mg PO daily at dinnertime as patient continues to be quite combative/aggressive. If this does not help, will consider whether Risperdal is effective or trial of Depakote should be initiated. 03/08/17 Psych: Will start trial of Depakote sprinkles 250mg PO daily at dinnertime; will likely decrease Risperdal back to 1mg PO BID tomorrow if Depakote seems to be more effective. 03/09/17 Psych: Continue current care; monitor behavior through day today after starting Depakote. If beneficial, could consider increasing Depakote and decreasing Risperdal. 03/10/17 17:34 Nursing reports pt is doing a little better. Continue current care 03/11/17 11:17 Continues to be agitated and aggressive at times. Continue current care 03/12/17 extra KDur added for K of 2.9 - reassess BMP and mg in am. May need to give oral suspension - she is refusing the pills. Na improved to 142. Vitals stable. 03/12/17 Psych: Sister/DPOA would like to consult Hospice care - will change Risperdal to M-tab and defer further med changes until this has been done. 03/13/17 Psych: Plan to discharge back to care facility with Hospice support on 03/14/17 (if GI symptoms resolved) per sister/DPOA's wishes. Will use Ativan PRN to help patient remain in room as long as necessary for infection control, transport, etc. Hospice will take over medications after discharge.
[2017-03-14] MEDS ORDERED: POTASSIUM CHLORIDE 20 MEQ/15 ML ORAL LIQUID PO SCH (08:00)
--- NOTE | 2017-03-14 10:31 | Extended Care Facility Orders ---
Admission Orders Admit to:: Other ([facility] at previous facility with Hospice support) Allergies/Adverse Reactions: Allergies No Known Allergies Allergy (Verified 03/04/17 10:59) Admitting Diagnosis: Dementia with behavioral disturbance Admitting Physician: Madalyn Green MD Attending Physician: Madalyn Green MD Code Status: Do Not Resuscitate Anticiapted Length of Stay: 30 days or less Rehab Potential: poor Rehab Prognosis: poor Diet: Regular Evaluations/Treatment: Psychiatric, as needed Senior Care Certification: I certify that SNF services are required to be given on an Inpatient basis because of the patients need for intermediate care on a continuing basis for the condition(s) for which he/she received inpatient hospital services prior to his/her transfer to the SNF. SNF inpatient care is necessary for the following reasons Indication for Senior Care: Not Applicable - Additional Information Resident is Aware of Diagnosis: No (due to severe dementia) Referrals: Carlene Salvador MD [Family Provider] - (Dr. Cornelio Salvador will see patient on rounds at the facility for Hosp. follow-up. [phone]. No Mental Health appt. scheduled, due to patient's advanced Dementia. Mental Health needs will be met by Department Store Manager.)
--- NOTE | 2017-03-14 10:34 | Progress Note ---
Progress Note: Mrs Mcbride is planning for discharge with hospice today. case discussed with nursing staff and discharge medications reviewed. Recommend continuing current medications with the understanding that these will likely be discontinued once hospice takes over care. Family is aware of this plan. and report they do not want to force any mediations.
[2017-03-14 10:59] VITALS: BMI 27.0
[2017-03-14] MEDS: LEVOTHYROXINE 150 MCG TABLET PO SCH (11:50)
[2017-03-14] MEDS: LOSARTAN 50 MG TABLET PO SCH (11:51)
[2017-03-14] MEDS: MEMANTINE 10 MG TABLET PO SCH (11:51)
[2017-03-14] MEDS: ASPIRIN *EC* 81 MG TABLET PO SCH (11:51)
[2017-03-14] MEDS: RisperiDONE 1 MG TABLET PO SCH (11:51)
[2017-03-14 15:04] VITALS: BP 128/72; PULSE 87; TEMP 97.7; O2SAT 99
--- NOTE | 2017-03-14 19:17 | Neuropsychiatric Disch Summary ---
Discharge Information Date of admission: 03/04/17 16:29 Anticipated date of discharge: 03/14/17 Attending Physician: Madalyn Green MD Primary care physician: Carlene Salvador MD - Discharge Diagnosis (1) Major neurocognitive disorder Status: Chronic (2) Hypertension Status: Chronic (3) Coronary artery disease Status: Chronic (4) Hyperlipidemia Status: Chronic (5) Hypothyroidism Status: Chronic (6) Elevated LFTs Status: Acute (7) Hypokalemia due to inadequate potassium intake Status: Acute (8) Gastrointestinal infection Status: Resolved Major neurocognitive disorder, Alzheimer's, severe, with behavioral disturbance - Laboratory Labs: 03/09/17 08:02 03/14/17 06:36 Date of Admission: 03/04/17 16:29 History of Present Illness: Patient is a 66-year-old female who was admitted to [facility] on 03/04/17 from [facility] for refusing medications and physical aggression at the LTC facility (towards staff and other residents), increasing over the past 1-2 weeks. Patient has an established history of dementia. On interview, patient says very little to me and does not give meaningful answers other than saying she is "okay." Nursing staff report she has continued to refuse medications since admission, slept well overnight but then has been pacing frequently this morning. She has also had some mild physical aggression such as acting that she was going to choke one of our nurses. Patient's appetite is quite poor. Hospital Course This is a general summary of the patient's hospital course. For more details refer to the complete medical record. Hospital course: Assessment Major neurocognitive disorder with behavior disturbance Alzheimer's Disease Coronary Artery Disease Hypertension Osteoarthritis Hypothyroidism-(on supplementation) low TSH -POA Hypokalemia-POA Hyperlipidemia Elevated LFTs-POA 03/05/17 hospitalist consult Agree with admission to [facility] for evaluation and treatment by psychiatrist and to provide a safe environment. Chronic medical problems appear stable. She does have hypokalemia on admission. We'll replace potassium and repeat BMP. She is found to have a low TSH on admission. FreeT4 is pending. Decrease her levothyroxine dose from 175 g to 150 g she'll need follow-up TSH in 4-6 weeks on an outpatient basis. Her liver enzymes are mildly elevated. Will monitor closely. We will follow patient medically throughout her stay. Thank you for the consult. Patient's care to return to Dr. Salvador upon discharge. 03/07/17 Psych: Increased Risperdal to 1mg PO q AM, 2mg PO daily at dinnertime as patient continues to be quite combative/aggressive. If this does not help, will consider whether Risperdal is effective or trial of Depakote should be initiated. 03/08/17 Psych: Will start trial of Depakote sprinkles 250mg PO daily at dinnertime; will likely decrease Risperdal back to 1mg PO BID tomorrow if Depakote seems to be more effective. 03/09/17 Psych: Continue current care; monitor behavior through day today after starting Depakote. If beneficial, could consider increasing Depakote and decreasing Risperdal. 03/10/17 17:34 Nursing reports pt is doing a little better. Continue current care 03/11/17 11:17 Continues to be agitated and aggressive at times. Continue current care 03/12/17 extra KDur added for K of 2.9 - reassess BMP and mg in am. May need to give oral suspension - she is refusing the pills. Na improved to 142. Vitals stable. 03/12/17 Psych: Sister/DPOA would like to consult Hospice care - will change Risperdal to M-tab and defer further med changes until this has been done. 03/13/17 Psych: Patient developed GI infection and must be quarantined until symptom free for 24 hours (was in fact symptom free by time of discharge). Plan to discharge back to care facility with Hospice support on 03/14/17 (if GI symptoms resolved) per sister/DPOA's wishes. Will use Ativan PRN to help patient remain in room as long as necessary for infection control, transport, etc. Hospice will take over medications after discharge. Discharge Plan - Med Rec/Dispo Referrals/Follow Up: Carlene Salvador MD [Family Provider] - (Dr. Cornelio Salvador will see patient on rounds at the facility for Hosp. follow-up. [phone]. No Mental Health appt. scheduled, due to patient's advanced Dementia. Mental Health needs will be met by [employer]raction [employer] Engineer.) Additional Instructions: Discharge Diagnosis: Major Neurocognitive Disorder, Alzheimer's, severe Reasons for Admission: Refusing medications, food, combative, and impulsive. IN CASE OF PSYCHIATRIC EMERGENCY, CONTACT [facility] STAFF AT [phone] ( available 24 hrs daily). Prescriptions: New Levothyroxine Sodium [Synthroid] 150 mcg PO ACB tab Potassium Chloride Oral Liq [KCl Oral Liq] 30 meq PO BIDWM udc RisperiDONE [RisperDAL] 2 mg PO 18 tab LORazepam [Ativan] 0.5 mg PO Q6H PRN 30 Days #90 tab PRN Reason: Extreme Agitation Metoprolol Succinate (XL) [Toprol Xl] 25 mg PO BIDWM tab Divalproex Sprinkle [Depakote Sprinkle] 250 mg PO 18 cap HydroCHLOROthiazide [Microzide] 12.5 mg PO BIDWM cap RisperiDONE [RisperDAL] 1 mg PO DAILY tab Milk of Magnesia [Mom] 30 ml PO DAILY PRN udc PRN Reason: Constipation Continue Triamcinolone 0.1% Cream 15 G [Kenalog] 1 applicatio TOP BID PRN PRN Reason: Prn Orders Mirtazapine Solu-Tab [Remeron Solu-Tab] 15 mg PO HS Cholecalciferol (Vitamin D3) [Vitamin D3] 2,000 unit PO DAILY Acetaminophen [Acetaminophen Extra Strength] 500 mg PO Q6H PRN 30 Days #90 PRN Reason: Pain Aspirin [Adult Low Dose Aspirin EC] 81 mg PO DAILY 30 Days #30 Benzocaine 20% Oral Gel [Orajel] 1 applicatio MM PRN PRN 30 Days #30 PRN Reason: Prn Orders Bimatoprost [Lumigan] 1 drop EACH EYE HS 30 Days #60 EPINEPHrine [Epipen 2-Tyron] 0.3 mg IJ PRN PRN 30 Days #30 PRN Reason: Allergic Reaction Losartan [Cozaar] 50 mg PO DAILY 30 Days #30 Gabapentin [Neurontin] 100 mg PO TID Changed Donepezil HCl [Aricept] 5 mg PO HS 60 Days #30 Discontinued Potassium Chloride 10 meq PO DAILY Levothyroxine Tab [Synthroid] 175 mcg PO ACB Memantine HCl [Namenda] 10 mg PO BID Metoprolol Pepe/Hydrochlorothiaz [Metoprolol ER-Hctz 25-12.5 mg] 1 tab PO BID - Disposition 01 Discharged Home, Self-Care - Dismissal Complete Discharge Instructions are:: Complete
== END 2017-03-14 15:45 | disposition hospice, home (50) | DRG 57 ==
LOC: ED 10:34 → GEN 16:29
PROVIDERS: ADMIT Psychiatry & Neurology Psychiatry; ATTEND Psychiatry & Neurology Psychiatry